=== PATIENT | female | born 1960 | race Caucasian/White ===

== ENCOUNTER 2024-08-29 07:33 | Inpatient (IN) | payer MEDICARE, SELFPAY ==
[2024-08-29] VITALS (18 sets, daily range): BP systolic 148–206; BP diastolic 58–99; PULSE 82–114; RESP 12–22; TEMP 36–36.9; O2SAT 95–100; BMI 25.7
--- NOTE | 2024-08-29 | ECG_ITS ---
Test Reason : high troponin Blood Pressure : */* mmHG Vent. Rate : 82 BPM Atrial Rate : 82 BPM P-R Int : 172 ms QRS Dur : 138 ms QT Int : 432 ms P-R-T Axes : 64 94 51 degrees QTcB Int : 504 ms Normal sinus rhythm with sinus arrhythmia Right bundle branch block Abnormal ECG When compared with ECG of 29-Aug-2024 08:05, No significant change was found Referred By: Alex Cervantes Electronically Signed By: Tung Tovar
--- NOTE | ~2024-08-29 | CT_ITS ---
CLINICAL HISTORY: abd pain and vomiting CT abdomen and pelvis without IV or oral contrast Comparison: None Findings: Lung bases show no active disease. No dependent layering pleural effusions. Moderate calcified coronary artery disease. Small sliding hiatal hernia. No stones are identified in the kidneys, ureters or bladder. There is no hydronephrosis or perinephric stranding/fluid. Evaluation of the liver, spleen, adrenal glands and pancreas demonstrates no lesions. It should be noted that isodense masses may be obscured in the absence of intravenous contrast. No radiopaque gallstones. Normal appendix. Increased stool burden. No pathologically enlarged lymph nodes . No ascites demonstrated. Normal distention of the urinary bladder. Post hysterectomy. No vertebral body compression fractures or spondylolisthesis. No bony destructive lesions. Impression: 1. No nephrolithiasis or urinary tract obstruction demonstrated. 2. No evidence of mechanical bowel obstruction. Equivocal gastroenteritis. Increased stool burden. Normal appendix. This document has been electronically signed by: Prem Underwood MD on 08/29/2024 10:30:23
[2024-08-29 07:49] LABS: Glucose, Whole Blood 507 mg/dL (60-115)
--- NOTE | 2024-08-29 07:52 | ED_ITS ---
HPI - Nausea/Vomiting/Diarrhea General Chief complaint: Nausea/Vomiting/Diarrhea Stated complaint: VOMITING Time Seen by Provider: 08/29/24 07:40 Source: patient and EMS Mode of arrival: EMS Limitations: no limitations History of Present Illness ED Provider: DR. Lowry HPI Narrative: a 64-year-old female came in by ambulance for evaluation of vomiting that is started since this morning, patient was traveling from [place] to [place] with RV, patient sustained sudden onset of vomiting and epigastric pain since this morning, no history of exposure to sick contacts, no exposure to bad food, no recent use of antibiotic, normal bowel movement yesterday, patient passing flatus, no history of intra-abdominal surgery. Patient was history of T2 DM recently started on Ozempic x4 weeks patient has been getting episode of nausea and vomiting while she was on Ozempic last injection was last week she is due for it today, and high blood pressure. +frequency urination, no dysuria, no hematuria. Patient is unable to take her oral medication presented with elevated blood pressure and elevated BS. Related Data Home Medications ?Medication ?Instructions ?Recorded ?Confirmed bupropion HCl 150 mg 24 hr tablet, 150 mg PO DAILY 08/18 extended release celecoxib 200 mg capsule 200 mg PO BID 08/29/24 ezetimibe 10 mg tablet 10 mg PO DAILY 08/29/24 fluoxetine 20 mg capsule 60 mg PO DAILY 08/29/24 fluoxetine 40 mg capsule 80 mg PO DAILY 08/29/24 guanfacine 3 mg tablet,extended 3 mg PO BEDTIME release 24 hr insulin glargine 100 38 unit subcut DAILY 5 unit-lixisenatide 33 mcg/mL subcutaneous pen (Soliqua 100/33) insulin glargine 100 unit/mL (3 21 unit subcut DAILY 0 08/29/24 mL) subcutaneous pen (Lantus Solostar U-100 Insulin) olmesartan 40 1 tab PO DAILY 08/29/24 mg-hydrochlorothiazide 12.5 mg tablet ondansetron 4 mg disintegrating 4 mg PO DAILY PRN naus ea/vomiting 08/29/24 08/29/24 tablet pregabalin 75 mg capsule 75 mg PO BID 08/29/24 semaglutide 1 mg/dose (4 mg/3 mL) 4 mg subcut QWEEK subcutaneous pen injector (Ozempic) simvastatin 40 mg tablet 40 mg PO BEDTIME 08/29/24 tizanidine 4 mg tablet 4 mg PO TID PRN muscle spasm s 08/29/24 08/29/24 tramadol 50 mg tablet 50 mg PO DAILY PRN Pain 08/18 zolpidem 5 mg tablet 5 mg PO BEDTIME PRN Insomnia 08/29/24 Allergies Allergy/AdvReac Type Severity Reaction Status Date / Time No Known Allergies Allergy Verified 08/29/24 07:43 Review of Systems 2 Review of Systems: All other systems are reviewed and are negative Constitutional: Reports as per HPI and Reports no additional constitutional complaints Eyes: Reports as per HPI and Reports no additional eye complaints Reports system reviewed and no additional complaints, except as documented Cardiovascular: Reports as per HPI and Reports no additional cardiovascular complaints Respiratory: Reports as per HPI and Reports no additional respiratory complaints Gastrointestinal: Reports as per HPI and Reports no additional gastrointestinal complaints Genitourinary: Reports no additional female genitourinary complaints Musculoskeletal: Reports no additional musculoskeletal complaints Skin/Breast: Reports system reviewed and no additional complaints, except as docu Psychiatric: Reports no additional psychiatric complaints Endocrine: Reports no additional endocrine complaints Hematologic/Lymphatic: Reports no additional hematologic/lymphatic complaints Allergic/Immunologic: Reports no additional allergic/immunologic complaints Reports system reviewed and no additional complaints, except as documented and Reports Abnormal speech present [facility] Social History Social History Smoked in Last 30 Days: No Use of substances other than those prescribed or required for medical reasons: No Advance Directives: Yes Advance Directives Information Provided: Yes Advance Directives on File: No Physical Exam 2 Vital Signs: Vital Signs: Last Vital Signs Temp 96.8 F 08/29/24 07:40 Pulse 82 08/29/24 10:00 Resp 12 08/29/24 10:00 BP 187/78 H 08/29/24 10:00 Pulse Ox 100 08/29/24 10:00 O2 Del Method Room Air 08/29/24 10:00 BMI result Body Mass Index 25.7 Vital signs have been reviewed and appear to be correct. Blood pressure elevated. Heart rate normal. Respiratory rate normal. Temperature normal. Oxygen saturation normal. Appearance: Alert. Oriented X3. No acute distress. Head: Normal external exam. Normocephalic. Atraumatic. No [place]o signs noted. No raccoon eyes noted Eyes: PERRLA. EOMI. Conjunctiva and sclera normal. Eyelids normal. ENT: TM's Normal. Pharynx normal. Uvula midline. Moist mucous membranes. No trismus noted. No drooling noted. No muffled voice noted. Neck: Normal inspection. Neck supple. FROM. No adenopathy. Thyroid Normal. No meningeal signs. No neck mass noted. CVS: Normal heart rate and rhythm. Heart sound normal. No murmurs noted. Pulses normal throughout. Respiratory: No respiratory distress. Painless inspiration. Breath sounds normal. No wheezes/rales/rhonchi noted. Chest nontender. No accessory muscle usage noted or decreased air movement noted. Abdomen: Soft and nontender. Bowel sounds normal in all 4 quadrants. No distention noted. No organomegaly noted. No visible injury noted. Back: No CVA tenderness. Full range of motion noted. Skin: Skin warm and dry. Normal skin color. Normal skin turgor. No rashes/lesions/lacerations noted. Extremities: No lower extremity edema. Extremities exhibit normal range of motion. Extremities nontender. Neuro: Oriented X 3. Cranial nerve exam: II-XII are grossly intact No motor deficit. No sensory deficit. Reflexes normal. Course Reevaluation(s) Reevaluation #1: Sepsis and infection is suspected now patient in DKA, +UTI. Will check blood culture, lactic acid, IV fluids, IV ceftriaxone. Time: 10:07 Medications Administered Generic Name Dose Route Start Last Admin Trade Name Freq PRN Reason Stop Dose Admin Insulin Human Regular 100 unit in 100 mls @ 0 mls/hr 08/29/24 09:45 08/29/24 10:05 Myxredlin IVCONT 8 unit/hr .Q0M RAQUEL 8 mls/hr Protocol Administration Per Protocol Sodium Chloride 2,041.17 mls @ 2,041.17 mls/hr 08/29/24 09:55 08/29/24 10:07 Ns 30 ml/kg infuse over 1 hr (2041.17 ml) 08/29/24 10:54 2,041.17 mls/hr IV Administration .Q1H STA Discontinued Medications Generic Name Dose Route Start Last Admin Trade Name Freq PRN Reason Stop Dose Admin Al Hydroxide/Mg Hydroxide 30 ml 08/29/24 07:40 08/29/24 08:03 Magnesium Hydrox/Alum Hydrox 30 Ml Oral.Susp PO 08/29/24 07:41 30 ml ONCE ONE Administration Ceftriaxone Sodium 1 gm 08/29/24 09:51 08/29/24 10:31 Ceftriaxone Sodium 1 Gm Vial IVPUSH 08/29/24 09:52 1 gm ONCE ONE Administration Droperidol 1.25 mg 08/29/24 09:16 08/29/24 09:31 Droperidol 5 Mg/2 Ml Vial IVPUSH 08/29/24 09:17 1.25 mg ONCE ONE Administration Famotidine 20 mg 08/29/24 07:40 08/29/24 08:03 Famotidine/Pf 20 Mg/2 Ml Vial IVPUSH 08/29/24 07:41 20 mg ONCE ONE Administration Sodium Chloride 1,000 mls @ 999 mls/hr 08/29/24 07:40 08/29/24 09:30 Ns IV 08/29/24 08:40 Infused .Q1H1M ONE Infusion Insulin Human Regular 5 unit 08/29/24 07:50 08/29/24 08:03 Insulin Regular, Human 100 Unit/Ml 10 Ml Vial IVPUSH 08/29/24 07:51 5 unit ONCE ONE Administration Ondansetron HCl 4 mg 08/29/24 07:40 08/29/24 08:03 Ondansetron Hcl 4 Mg/2 Ml Vial IVPUSH 08/29/24 07:41 4 mg ONCE ONE Administration Medical Decision Making Differential Diagnosis Differential Diagnoses: The differential diagnosis associated with the presentation includes ( essential hypertension, hypertensive emergency, gastritis, colitis, diverticulitis, UTI, pyelonephritis, electrolyte derangement, severe anemia.) Admission/Observation Consideration of admission/observation: Escalation of care including admission/observation considered Consult Healthcare Provider Management of the patient was discussed with: Single Fold Machine Operator ( Dr. Church) Lab Data MDM Lab Attestation statement: I reviewed the patient's lab results. 08/29/24 07:54 08/29/24 07:54 Labs: Lab Results 08/29/24 08/29/24 08/29/24 Range/Units 07:46 07:54 08:04 WBC 19.5 H (4.8-10.8) X10*3/uL RBC 3.86 L (4.20-5.50) X10*6/uL Hgb 11.7 L (12.0-16.0) g/dl Hct 32.6 L (37.0-47.0) % MCV 84.5 (80.0-98.0) fL MCH 30.3 (27.0-33.0) pg MCHC 35.9 H (31.0-35.0) g/dl RDW 12.3 (11.0-16.0) % Plt Count 298 (160-400) X10*3/uL MPV 10.6 (9.4-12.3) fL Immature Gran % (Auto) 1.0 H (0.0-0.4) % Neut % (Auto) 85.1 H (45-73) % Lymph % (Auto) 6.2 L (20-40) % [place] % (Auto) 7.3 (2-11) % Eos % (Auto) 0.1 (0-4) % Baso % (Auto) 0.3 (0-2) % Lymph # (Auto) 1.2 (1.2-4.9) X10*3/uL [place] # (Auto) 1.4 H (0.1-1.2) X10*3/uL Eos # (Auto) 0.0 (0.0-0.4) X10*3/uL Baso # (Auto) 0.1 (0.0-0.2) X10*3/uL Abs Immat Gran (auto) 0.20 H (0.00-0.03) X10*3/uL Absolute Neuts (auto) 16.6 H (2.0-8.3) x10*3/uL Absolute Nucleated RBC 0.000 (0.0-0.012) X10*3/uL Nucleated RBC % (auto) 0.0 (0.0-0.2) /100WBC Hold Purple Top SEE NOTE VBG pH 7.36 (7.32-7.43) VBG pCO2 20 mmHg VBG pO2 66 mmHg VBG HCO3 11 L (22-26) mmol/L VBG O2 Saturation 90.0 % VBG Base Excess -11.1 mmol/L Sodium 132 L (135-145) mmol/L Potassium 4.9 (3.3-5.1) mmol/L Chloride 96 (96-108) mmol/L Carbon Dioxide 12 L (22-29) mmol/L Anion Gap 29 H (12-20) BUN 29 H (9-16) mg/dL Creatinine 1.15 (0.5-1.4) mg/dL Estim Creat Clear Calc 47.4 Estimated GFR 48 POC Glucose 507 H* (60-115) mg/dL Random Glucose 534 H* (60-115) mg/dL Lactic Acid (0.5-2.0) mmol/L Calcium 9.6 (8.4-10.2) mg/dL Total Bilirubin 1.0 (0.0-1.0) mg/dL Direct Bilirubin 0.4 (0.0-0.5) mg/dL AST 30 (5-31) U/L ALT 21 (0-31) U/L Alkaline Phosphatase 118 H (39-117) U/L Troponin I High Sens 3.0 (<3.5-17.0) ng/L Total Protein 7.7 (6.5-8.0) g/dL Albumin 4.4 (3.5-5.0) g/dL Lipase 50 (8-78) U/L Beta-Hydroxybutyrate 7.21 H (0.02-0.27) mmol/L Urine Color Urine Appearance Urine pH (5.0-9.0) Ur Specific [place] (1.005-1.025) Urine Protein (Neg-Trace) mg/dL Urine Glucose (UA) (Negative) mg/dL Urine Ketones (Negative) mg/dL Urine Blood (Negative) Urine Nitrite (Negative) Ur Leukocyte Esterase (Negative) Urine RBC (0-2) /HPF Urine WBC (0-5) /HPF Ur Squamous Epith Cells (0-2) /HPF Urine Bacteria (None Seen) Hyaline Casts (0-2) /LPF Urine Yeast 08/29/24 08/29/24 08/29/24 Range/Units 08:33 10:16 10:26 WBC (4.8-10.8) X10*3/uL RBC (4.20-5.50) X10*6/uL Hgb (12.0-16.0) g/dl Hct (37.0-47.0) % MCV (80.0-98.0) fL MCH (27.0-33.0) pg MCHC (31.0-35.0) g/dl RDW (11.0-16.0) % Plt Count (160-400) X10*3/uL MPV (9.4-12.3) fL Immature Gran % (Auto) (0.0-0.4) % Neut % (Auto) (45-73) % Lymph % (Auto) (20-40) % [place] % (Auto) (2-11) % Eos % (Auto) (0-4) % Baso % (Auto) (0-2) % Lymph # (Auto) (1.2-4.9) X10*3/uL [place] # (Auto) (0.1-1.2) X10*3/uL Eos # (Auto) (0.0-0.4) X10*3/uL Baso # (Auto) (0.0-0.2) X10*3/uL Abs Immat Gran (auto) (0.00-0.03) X10*3/uL Absolute Neuts (auto) (2.0-8.3) x10*3/uL Absolute Nucleated RBC (0.0-0.012) X10*3/uL Nucleated RBC % (auto) (0.0-0.2) /100WBC Hold Purple Top VBG pH (7.32-7.43) VBG pCO2 mmHg VBG pO2 mmHg VBG HCO3 (22-26) mmol/L VBG O2 Saturation % VBG Base Excess mmol/L Sodium (135-145) mmol/L Potassium (3.3-5.1) mmol/L Chloride (96-108) mmol/L Carbon Dioxide (22-29) mmol/L Anion Gap (12-20) BUN (9-16) mg/dL Creatinine (0.5-1.4) mg/dL Estim Creat Clear Calc Estimated GFR POC Glucose 400 H* (60-115) mg/dL Random Glucose (60-115) mg/dL Lactic Acid 1.5 (0.5-2.0) mmol/L Calcium (8.4-10.2) mg/dL Total Bilirubin (0.0-1.0) mg/dL Direct Bilirubin (0.0-0.5) mg/dL AST (5-31) U/L ALT (0-31) U/L Alkaline Phosphatase (39-117) U/L Troponin I High Sens (<3.5-17.0) ng/L Total Protein (6.5-8.0) g/dL Albumin (3.5-5.0) g/dL Lipase (8-78) U/L Beta-Hydroxybutyrate (0.02-0.27) mmol/L Urine Color Yellow Urine Appearance Clear Urine pH 5.5 (5.0-9.0) Ur Specific [place] 1.025 (1.005-1.025) Urine Protein 30 (1+) H (Neg-Trace) mg/dL Urine Glucose (UA) >=1000 H (Negative) mg/dL Urine Ketones >=160 (Negative) mg/dL Urine Blood Moderate (2+) H (Negative) Urine Nitrite Negative (Negative) Ur Leukocyte Esterase Moderate (2+) H (Negative) Urine RBC 3-5 H (0-2) /HPF Urine WBC 11-20 H (0-5) /HPF Ur Squamous Epith Cells 0-2 (0-2) /HPF Urine Bacteria Trace (None Seen) Hyaline Casts 0-2 (0-2) /LPF Urine Yeast Present Independent Interpretation I performed an independent interpretation of an: CT Scan ( Abdomen pelvis:1. No nephrolithiasis or urinary tract obstruction demonstrated. 2. No evidence of mechanical bowel obstruction. Equivocal gastroenteritis. Increased stool burden. Normal appendix.) Radiology Impression Discussion of test interpretation with radiology: I have reviewed the radiologist's reading. Critical Care Time Critical Care Time Critical Care Time: Yes Total Critical Care Time: 60 Attestation: The patient was critically ill with a high probability of imminent or life- threatening deterioration. I spent greater than 30 minutes of discontinuous time evaluating the patient, delivering critical care at the bedside, discussing evaluating data with consultants. Critical care time does not include time spent performing separately billable procedures or teaching. Time spent performing critical care was 60 minutes. Discharge Plan Discharge Clinical Impression: DKA (diabetic ketoacidosis), Sepsis, UTI (urinary tract infection) Patient Disposition: Admitted As Inpatient Print Language: Maori
--- NOTE | 2024-08-29 07:53 | ECG_ITS ---
Test Reason : ABD PAIN Blood Pressure : */* mmHG Vent. Rate : 88 BPM Atrial Rate : 88 BPM P-R Int : 180 ms QRS Dur : 150 ms QT Int : 438 ms P-R-T Axes : 55 86 29 degrees QTcB Int : 529 ms Sinus rhythm with marked sinus arrhythmia Right bundle branch block Abnormal ECG No previous ECGs available Referred By: Annie Lowry Electronically Signed By: HELIO ZUNIGA MD
[2024-08-29 08:02] LABS: MANUAL DIFF FLAG NO
[2024-08-29] MEDS: Magnesium Hydrox/Alum Hydrox 30 ML ORAL.SUSP PO (08:03)
[2024-08-29 08:06] LABS: Hematocrit 32.6 % (37.0-47.0); Hemoglobin 11.7 g/dl (12.0-16.0); Imm Gran Abs Auto 0.20 X10*3/uL (0.00-0.03); Imm Gran Pct Auto 1.0 % (0.0-0.4); Lymphocytes Absolute Auto 1.2 X10*3/uL (1.2-4.9); Mean Corpuscular HGB Conc 35.9 g/dl (31.0-35.0); Mean Corpuscular Hemoglobin 30.3 pg (27.0-33.0); Mean Corpuscular Volume 84.5 fL (80.0-98.0); NRBC Abs Auto 0.000 X10*3/uL (0.0-0.012); NRBC Pct Auto 0.0 /100WBC (0.0-0.2); Platelet Count 298 X10*3/uL (160-400); Red Blood Count 3.86 X10*6/uL (4.20-5.50); White Blood Count 19.5 X10*3/uL (4.8-10.8)
[2024-08-29 08:09] LABS: VBG HCO3 11 mmol/L (22-26); VBG O2 % Saturation 90.0 %
[2024-08-29 08:10] LABS: Venous Blood Gas Refer to POC result
--- NOTE | 2024-08-29 08:10 | PC.NURSE ---
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 Patient recently started on ozempic which patient states made her sick. Patient lethargic but arrousable - poor historian and noted to have difficulty answering simple questions. Placed on monitoring manager and NSR noted. Patient noted to have an elevated blood sugar and insulin given as ordered. Lungs clear bilat. Respirations even and non-labored. Abdomen soft with positive bowel sounds. c/o epigastric pain and noted to be dry heaving. Positive pedal pulses with no edema.
[2024-08-29 08:38] LABS: Troponin-I High Sensitivity 3.0 ng/L (<3.5-17.0)
[2024-08-29 08:40] LABS: Appearance Urine Clear; Glucose Urine UA >=1000 mg/dL (Negative); PH 5.5 (5.0-9.0); Specific Gravity - Urine 1.025 (1.005-1.025); UMIC TRIGGER UACC YES
[2024-08-29 08:41] LABS: Alanine Aminotransferase 21 U/L (0-31); Albumin Level 4.4 g/dL (3.5-5.0); Alkaline Phosphatase 118 U/L (39-117); Anion Gap 29 (12-20); Aspartate Amino Transferase 30 U/L (5-31); Blood Urea Nitrogen 29 mg/dL (9-16); Calcium 9.6 mg/dL (8.4-10.2); Carbon Dioxide 12 mmol/L (22-29); Chloride 96 mmol/L (96-108); Creatinine Clr Calc Pharmacy 47.4; Estimated Glomerular Filt Rate 48; Lipase 50 U/L (8-78); Potassium 4.9 mmol/L (3.3-5.1); Sodium 132 mmol/L (135-145); Total Protein 7.7 g/dL (6.5-8.0)
[2024-08-29 08:58] LABS: UACC Culture Trigger YES
[2024-08-29] MEDS: Insulin Regular/NS 100 UNIT/100 ML PLAST..BAG 8 UNIT IVCONT (10:05)
[2024-08-29] MEDS: 0.9 % Sodium Chloride 2,041.17 ML 2041.17 ML IV (10:07)
[2024-08-29 10:36] LABS: Glucose, Whole Blood 400 mg/dL (60-115)
--- NOTE | 2024-08-29 11:04 | PM.CCHP ---
History of Present Illness Date of Service: 08/29/24 Attending physician on admission: Vega Church Chief Complaint: Nause clear-cut DKA a vomiting 64-year-old type 2 diabetic on a trip to [place] driving home to [place] started to become weak and more lethargic yesterday and noted very foul-smelling urine but she had no cough no shortness a breath no chest discomfort she had no tick exposure she had no swimming in either the ocean or in a bello no cuts no bruises just the increased urinary frequency urgency and dysuria the only medicine she remembers is the Ozempic Review of Systems Review of Systems: Ten point review of systems otherwise negative Yes all other systems are reviewed and are negative [facility] Social History Social History Smoked in Last 30 Days: No Use of substances other than those prescribed or required for medical reasons: No Advance Directives: Yes Advance Directives Information Provided: Yes Advance Directives on File: No Meds Allergies Allergy/AdvReac Type Severity Reaction Status Date / Time No Known Allergies Allergy Verified 08/29/24 07:43 Active Medications: Current Medications Dextrose (Dextrose 50 % 25 Gm/50 Ml Syringe) 25 gm IVPUSH Q30M PRN PRN Reason: BG < 70 Insulin Human Regular (Myxredlin) 100 unit in 100 mls @ 0 mls/hr IVCONT .[facility]M [facility]; Protocol Last Admin: 08/29/24 10:05 Dose: 8 unit/hr, 8 mls/hr Potassium Chloride/Dextrose/Sod Cl (Kcl 20 Meq In 5% Dex/0.45% Sod) 20 meq in 1,000 mls @ 100 mls/hr IVCONT .Q10H [facility] Home Medications ?Medication ?Instructions ?Recorded ?Confirmed ?Last Taken ?Type bupropion HCl 150 mg 24 hr tablet, 150 mg PO DAILY 08/29/24 Unknown History extended release celecoxib 200 mg capsule 200 mg PO BID 08/29/24 Unknown History ezetimibe 10 mg tablet 10 mg PO DAILY 08/29/24 Unknown History fluoxetine 20 mg capsule 60 mg PO DAILY 08/29/24 Unknown History fluoxetine 40 mg capsule 80 mg PO DAILY 08/29/24 Unknown History guanfacine 3 mg tablet,extended 3 mg PO BEDTIME 08/29/24 Unknown History release 24 hr insulin glargine 100 38 unit subcut DAILY 08/29/24 Unknown History unit-lixisenatide 33 mcg/mL subcutaneous pen (Soliqua 100/33) insulin glargine 100 unit/mL (3 21 unit subcut DAILY 08/29/24 Unknown History mL) subcutaneous pen (Lantus Solostar U-100 Insulin) olmesartan 40 1 tab PO DAILY 08/29/24 Unknown History mg-hydrochlorothiazide 12.5 mg tablet ondansetron 4 mg disintegrating 4 mg PO DAILY PRN nausea/vomiting 08/29/24 08/29/24 Unknown History tablet pregabalin 75 mg capsule 75 mg PO BID 08/29/24 Unknown History semaglutide 1 mg/dose (4 mg/3 mL) 4 mg subcut QWEEK 08/29/24 Unknown History subcutaneous pen injector (Ozempic) simvastatin 40 mg tablet 40 mg PO BEDTIME 08/29/24 Unknown History tizanidine 4 mg tablet 4 mg PO TID PRN muscle spasms 08/29/24 08/29/24 Unknown History tramadol 50 mg tablet 50 mg PO DAILY PRN Pain 08/29/24 Unknown History zolpidem 5 mg tablet 5 mg PO BEDTIME PRN Insomnia 08/29/24 Unknown History Physical Exam Vital Signs: Vital Signs: Last Vital Signs Temp 96.8 F 08/29/24 07:40 Pulse 82 08/29/24 10:00 Resp 12 08/29/24 10:00 BP 187/78 H 08/29/24 10:00 Pulse Ox 100 08/29/24 10:00 O2 Del Method Room Air 08/29/24 10:00 BMI result Body Mass Index 25.7 Eyes are closed no she has she is looking adeno somewhat distressed very nauseous she has reached up a little bit of upper GI volume and she has already received a few L of fluid from the emergency room at this point and 5 units of IV insulin Skin is normal there are no lesions no tics no bites no cellulitis Cognitive function is okay just lethargic nonfocal exam Bedside echo with normal LV normal RV size structure and function no primary valve or pericardial disease and the inferior vena cava is fairly collapsed even after this fluid is given so clearly intravascularly depleted Abdomen benign no tenderness no organomegaly and the lipase is normal Results Labs 08/29/24 07:54 08/29/24 07:54 Labs: Laboratory Results - last 24 hr 08/29/24 08/29/24 08/29/24 07:46 07:54 08:04 MCV 84.5 MCH 30.3 MCHC 35.9 H RDW 12.3 Plt Count 298 MPV 10.6 Immature Gran % (Auto) 1.0 H Neut % (Auto) 85.1 H Lymph % (Auto) 6.2 L [place] % (Auto) 7.3 Eos % (Auto) 0.1 Baso % (Auto) 0.3 Lymph # (Auto) 1.2 [place] # (Auto) 1.4 H Eos # (Auto) 0.0 Baso # (Auto) 0.1 Abs Immat Gran (auto) 0.20 H Absolute Neuts (auto) 16.6 H Absolute Nucleated RBC 0.000 Nucleated RBC % (auto) 0.0 Hold Purple Top SEE NOTE VBG pH 7.36 VBG pCO2 20 VBG pO2 66 VBG HCO3 11 L VBG O2 Saturation 90.0 VBG Base Excess -11.1 Anion Gap 29 H Estim Creat Clear Calc 47.4 Estimated GFR 48 POC Glucose 507 H* Random Glucose 534 H* Lactic Acid Calcium 9.6 Total Bilirubin 1.0 Direct Bilirubin 0.4 AST 30 ALT 21 Alkaline Phosphatase 118 H Troponin I High Sens 3.0 Total Protein 7.7 Albumin 4.4 Lipase 50 Beta-Hydroxybutyrate 7.21 H Urine Color Urine Appearance Urine pH Ur Specific [place] Urine Protein Urine Glucose (UA) Urine Ketones Urine Blood Urine Nitrite Ur Leukocyte Esterase Urine RBC Urine WBC Ur Squamous Epith Cells Urine Bacteria Hyaline Casts Urine Yeast 08/29/24 08/29/24 08/29/24 08:33 10:16 10:26 MCV MCH MCHC RDW Plt Count MPV Immature Gran % (Auto) Neut % (Auto) Lymph % (Auto) [place] % (Auto) Eos % (Auto) Baso % (Auto) Lymph # (Auto) [place] # (Auto) Eos # (Auto) Baso # (Auto) Abs Immat Gran (auto) Absolute Neuts (auto) Absolute Nucleated RBC Nucleated RBC % (auto) Hold Purple Top VBG pH VBG pCO2 VBG pO2 VBG HCO3 VBG O2 Saturation VBG Base Excess Anion Gap Estim Creat Clear Calc Estimated GFR POC Glucose 400 H* Random Glucose Lactic Acid 1.5 Calcium Total Bilirubin Direct Bilirubin AST ALT Alkaline Phosphatase Troponin I High Sens Total Protein Albumin Lipase Beta-Hydroxybutyrate Urine Color Yellow Urine Appearance Clear Urine pH 5.5 Ur Specific [place] 1.025 Urine Protein 30 (1+) H Urine Glucose (UA) >=1000 H Urine Ketones >=160 Urine Blood Moderate (2+) H Urine Nitrite Negative Ur Leukocyte Esterase Moderate (2+) H Urine RBC 3-5 H Urine WBC 11-20 H Ur Squamous Epith Cells 0-2 Urine Bacteria Trace Hyaline Casts 0-2 Urine Yeast Present Assessment and Plan (1) DKA (diabetic ketoacidosis): Status: Acute (2) UTI (urinary tract infection): Status: Acute Plan Thus far I do not believe that she is septic she might have a urinary tract infection but either the UTI or the GLP 1 inhibitor precipitated this diabetic ketoacidosis and I may not even continue with an insulin drip I am just going to continue with IV fluids and possibly send a procalcitonin but at this point there is no lactic acid component this is purely ketogenic Total time managing care of this patient today: 60 minutes.
[2024-08-29 11:34] LABS: Glucose, Whole Blood 280 mg/dL (60-115)
--- NOTE | 2024-08-29 11:38 | PC.NURSE ---
Report given to Judith SALAS
--- NOTE | 2024-08-29 11:49 | PHA.MEDREC ---
Pharmacy Consult ? Medication Reconciliation Pharmacy has completed the medication reconciliation, pt's compiled list of pt's medications. Spoke to pt and him about those left off the list, pt stated she doesn't not use insulin, gets ozempic on sundays.
[2024-08-29 12:18] LABS: Glucose, Whole Blood 264 mg/dL (60-115)
[2024-08-29] MEDS: KCl 20 mEq in 5% Dex/0.45% Sod 20 MEQ/1,000 ML IV.SOLN 100 MEQ IVCONT (12:24)
[2024-08-29 12:59] LABS: Procalcitonin 0.96 ng/mL
[2024-08-29 13:33] LABS: Glucose, Whole Blood 244 mg/dL (60-115)
[2024-08-29 14:35] LABS: Glucose, Whole Blood 216 mg/dL (60-115)
--- NOTE | 2024-08-29 14:46 | PC.NURSE ---
?The patient arrived to ICU?approximately at 1215 from the ED for management of DKA. Neuro/Respiratory: Alert and oriented but fatigued. On RA, clear lung sounds.? Cardiac:? Sinus Rhythm on tele, Systolic BP > 170. Dr. Church made aware, no intervention at this time. GI/: LBM 7/3, +bowel sounds, NPO, Voiding in the bedside commode,? Skin: Intact Endocrine: on Insulin gtt per MAR, POC Q 1 Hr Lines: Peripheral IV x2.
[2024-08-29 15:12] LABS: Blood Urea Nitrogen 20 mg/dL (9-16); Calcium 8.7 mg/dL (8.4-10.2); Creatinine Clr Calc Pharmacy 62.0; Estimated Glomerular Filt Rate > 60
[2024-08-29 15:26] LABS: Anion Gap 22 (12-20); Carbon Dioxide 11 mmol/L (22-29); Chloride 108 mmol/L (96-108); Potassium 3.9 mmol/L (3.3-5.1); Sodium 137 mmol/L (135-145)
[2024-08-29 15:28] LABS: VBG HCO3 14 mmol/L (22-26); VBG O2 % Saturation 100.0 %
[2024-08-29 15:29] LABS: Venous Blood Gas Refer to POC result
[2024-08-29] MEDS: Lactated Ringers 1,000 ML 125 ML IVCONT (15:37)
[2024-08-29] MEDS: Potassium Phosphate/NS 15 MMOL/250 ML PLAST..BAG 62.5 MMOL IV (15:38)
[2024-08-29 15:44] LABS: Glucose, Whole Blood 213 mg/dL (60-115)
[2024-08-29 16:32] LABS: Glucose, Whole Blood 193 mg/dL (60-115)
[2024-08-29 17:41] LABS: Glucose, Whole Blood 155 mg/dL (60-115)
[2024-08-29 18:40] LABS: Glucose, Whole Blood 159 mg/dL (60-115)
[2024-08-29 19:26] LABS: VBG HCO3 15 mmol/L (22-26); VBG O2 % Saturation 99.0 %
[2024-08-29 19:26] LABS: Hematocrit 33.9 % (37.0-47.0); Hemoglobin 11.8 g/dl (12.0-16.0); Imm Gran Abs Auto 0.29 X10*3/uL (0.00-0.03); Imm Gran Pct Auto 1.4 % (0.0-0.4); Lymphocytes Absolute Auto 0.9 X10*3/uL (1.2-4.9); MANUAL DIFF FLAG SCAN; Mean Corpuscular HGB Conc 34.8 g/dl (31.0-35.0); Mean Corpuscular Hemoglobin 30.2 pg (27.0-33.0); Mean Corpuscular Volume 86.7 fL (80.0-98.0); NRBC Abs Auto 0.000 X10*3/uL (0.0-0.012); NRBC Pct Auto 0.0 /100WBC (0.0-0.2); Platelet Count 289 X10*3/uL (160-400); Red Blood Count 3.91 X10*6/uL (4.20-5.50); SCAN SMEAR FLAG 1; White Blood Count 21.2 X10*3/uL (4.8-10.8)
[2024-08-29 19:27] LABS: Venous Blood Gas Refer to POC result
[2024-08-29 19:34] LABS: Glucose, Whole Blood 162 mg/dL (60-115)
[2024-08-29 19:37] LABS: Anion Gap 18 (12-20); Blood Urea Nitrogen 15 mg/dL (9-16); Calcium 8.4 mg/dL (8.4-10.2); Carbon Dioxide 17 mmol/L (22-29); Chloride 106 mmol/L (96-108); Creatinine Clr Calc Pharmacy 79.1; Estimated Glomerular Filt Rate > 60; Potassium 3.8 mmol/L (3.3-5.1); Sodium 137 mmol/L (135-145)
[2024-08-29 19:51] LABS: Troponin-I High Sensitivity 272.6 ng/L (<3.5-17.0)
[2024-08-29 20:27] LABS: B Type Natriuretic Peptide 541 pg/mL (<100)
[2024-08-29 20:39] LABS: Glucose, Whole Blood 169 mg/dL (60-115)
[2024-08-29 21:44] LABS: Glucose, Whole Blood 180 mg/dL (60-115)
[2024-08-29 22:08] LABS: VBG HCO3 17 mmol/L (22-26); VBG O2 % Saturation 99.0 %
[2024-08-29 22:08] LABS: Venous Blood Gas Refer to POC result
[2024-08-29] MEDS: Dextrose 5 % and Lactated Ring 1,000 ML 50 ML IVCONT (22:11)
[2024-08-29 22:22] LABS: Troponin-I High Sensitivity 453.7 ng/L (<3.5-17.0)
[2024-08-29 22:30] LABS: INTERNATIONAL NORM RATIO 1.0 (0.9-1.1); Prothrombin Time 11.7 SEC (10.9-12.4)
[2024-08-29 22:33] LABS: PTT Heparin Drip 22.2 SEC (53-77.9)
--- NOTE | 2024-08-29 22:33 | PM.EVENT ---
Event Note Date of Service: 08/29/24 Event Note: Patient troponin rising, inital trop at 0800 neg. Tonight trops elvated to 272.6 and follow up 453.7. Patient denies chest pain. EKG w/ no ST elevations. Will initiate heparin drip/ ASA. Formal echo and cardiology consult in the morning Time Spent With Patient Time: Total time managing care of this patient today ____ minutes.
[2024-08-29 23:02] LABS: Glucose, Whole Blood 176 mg/dL (60-115)
[2024-08-29] MEDS: Heparin Sodium,Porcine/1/2NS 25,000 UNIT/250 ML IV.SOLN 9.53 UNIT IVCONT (23:07)
[2024-08-29 23:36] LABS: Glucose, Whole Blood 202 mg/dL (60-115)
[2024-08-30] VITALS (27 sets, daily range): BP systolic 115–173; BP diastolic 58–88; PULSE 94–112; RESP 16–38; TEMP 36.1–36.8; O2SAT 97–99; BMI 25.0
--- NOTE | 2024-08-30 | ECG_ITS ---
Test Reason : elevated troponin Blood Pressure : */* mmHG Vent. Rate : 105 BPM Atrial Rate : 105 BPM P-R Int : 150 ms QRS Dur : 138 ms QT Int : 416 ms P-R-T Axes : 63 83 25 degrees QTcB Int : 549 ms Sinus tachycardia Right bundle branch block Abnormal ECG When compared with ECG of 29-Aug-2024 19:58, No significant change was found Referred By: Alex Cervantes Electronically Signed By: Tung Tovar
[2024-08-30 00:49] LABS: Glucose, Whole Blood 212 mg/dL (60-115)
[2024-08-30 01:47] LABS: Glucose, Whole Blood 205 mg/dL (60-115)
[2024-08-30 02:45] LABS: Glucose, Whole Blood 186 mg/dL (60-115)
[2024-08-30 03:52] LABS: Glucose, Whole Blood 180 mg/dL (60-115)
[2024-08-30 04:48] LABS: Glucose, Whole Blood 196 mg/dL (60-115)
[2024-08-30 04:52] LABS: VBG HCO3 18 mmol/L (22-26); VBG O2 % Saturation 92.0 %
[2024-08-30 05:47] LABS: Glucose, Whole Blood 181 mg/dL (60-115)
[2024-08-30 05:57] LABS: INTERNATIONAL NORM RATIO 1.0 (0.9-1.1); Prothrombin Time 11.8 SEC (10.9-12.4)
[2024-08-30 05:59] LABS: Hematocrit 34.3 % (37.0-47.0); Hemoglobin 12.2 g/dl (12.0-16.0); Imm Gran Abs Auto 0.22 X10*3/uL (0.00-0.03); Imm Gran Pct Auto 1.0 % (0.0-0.4); Lymphocytes Absolute Auto 1.2 X10*3/uL (1.2-4.9); MANUAL DIFF FLAG SCAN; Mean Corpuscular HGB Conc 35.6 g/dl (31.0-35.0); Mean Corpuscular Hemoglobin 30.1 pg (27.0-33.0); Mean Corpuscular Volume 84.7 fL (80.0-98.0); NRBC Abs Auto 0.000 X10*3/uL (0.0-0.012); NRBC Pct Auto 0.0 /100WBC (0.0-0.2); Platelet Count 362 X10*3/uL (160-400); Red Blood Count 4.05 X10*6/uL (4.20-5.50); SCAN SMEAR FLAG 1; White Blood Count 21.9 X10*3/uL (4.8-10.8)
[2024-08-30 06:16] LABS: Alanine Aminotransferase 15 U/L (0-31); Albumin Level 3.8 g/dL (3.5-5.0); Alkaline Phosphatase 100 U/L (39-117); Anion Gap 16 (12-20); Aspartate Amino Transferase 20 U/L (5-31); Blood Urea Nitrogen 15 mg/dL (9-16); Calcium 8.7 mg/dL (8.4-10.2); Carbon Dioxide 18 mmol/L (22-29); Chloride 104 mmol/L (96-108); Creatinine Clr Calc Pharmacy 81.4; Estimated Glomerular Filt Rate > 60; Potassium 3.3 mmol/L (3.3-5.1); Sodium 135 mmol/L (135-145); Total Protein 6.9 g/dL (6.5-8.0)
[2024-08-30 06:19] LABS: Alanine Aminotransferase 13 U/L (0-31); Albumin Level 3.9 g/dL (3.5-5.0); Alkaline Phosphatase 96 U/L (39-117); Anion Gap 18 (12-20); Aspartate Amino Transferase 21 U/L (5-31); Blood Urea Nitrogen 15 mg/dL (9-16); Calcium 8.8 mg/dL (8.4-10.2); Carbon Dioxide 18 mmol/L (22-29); Chloride 103 mmol/L (96-108); Creatinine Clr Calc Pharmacy 76.8; Estimated Glomerular Filt Rate > 60; Magnesium 1.7 mg/dL (1.6-2.6); Potassium 3.3 mmol/L (3.3-5.1); Sodium 136 mmol/L (135-145); Total Protein 7.0 g/dL (6.5-8.0)
[2024-08-30 06:24] LABS: PTT Heparin Drip 26.6 SEC (53-77.9)
[2024-08-30 06:36] LABS: Troponin-I High Sensitivity 529.7 ng/L (<3.5-17.0)
[2024-08-30 06:43] LABS: Glucose, Whole Blood 183 mg/dL (60-115)
[2024-08-30] MEDS: Insulin Regular/NS 100 UNIT/100 ML PLAST..BAG IVCONT (06:44)
--- NOTE | 2024-08-30 07:00 | CA_ITS ---
Transthoracic Echocardiogram Patient (Last, First, Middle): Leatha Lira, Gender: Female Date of : 1960 Age: 64 Procedure Date: 08/30/2024 Procedure Type: Transthoracic Echocardiogram Location: ICU Height: 165.1 cm Weight: 65.77 kg BSA: 1.73 m2 Heart Rate: 102 bpm BP: 144 / 63 mmHg [employer] Instructor: SB Referring MD: Alex Cervantes NP Symptoms: Elevated trop Study Quality: Fair ECG Rhythm: Tachycardia Conclusions: - Normal left ventricular cavity size. The left ventricular systolic function is hyperdynamic. The visually estimated ejection fraction is >70%. - [id number] left ventricular hypertrophy. - Left ventricular outflow tract gradient at rest 49 mm Hg, post Valsalva 66 mm Hg. No mitral regurgitation noted. - Normal right ventricular cavity size and systolic function. Findings Procedure Information Contrast agent, definity, is being given per protocol without apparent complications. Left Ventricle Normal left ventricular cavity size. The left ventricular systolic function is hyperdynamic. The visually estimated ejection fraction is >70%. There is no evidence of regional wall motion abnormalities. 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 Diastolic function is indeterminate on the basis of available data. [id number] left ventricular hypertrophy. Left ventricular outflow tract gradient at rest 49 mm Hg, post Valsalva 66 mm Hg. No mitral regurgitation noted. Right Ventricle Normal right ventricular cavity size and systolic function. Atria The left atrium is normal in size. There is lipomatous hypertrophy of the interatrial septum. The atrial septum has a dumbell appearance. The right atrium is normal in size. Aortic Valve Normal aortic valve structure and function. There is no aortic valve stenosis. There is no aortic valve regurgitation. Mitral Valve The mitral valve appears normal. There is no mitral valve regurgitation. There is no mitral valve stenosis. Pulmonic Valve The pulmonic valve is normal. There is trace pulmonic valve regurgitation. Tricuspid Valve Normal tricuspid valve structure. There is no tricuspid valve regurgitation. Tricuspid regurgitation envelope is inadequate for calculation of right ventricular systolic pressure. Normal right atrial pressure. Great Vessels All visible segments of the aorta are normal in size. The visualized portions of the pulmonary artery and branches are normal. Venous The inferior vena cava is normal in size and collapses greater than 50% with inspiration. Pericardium/Pleural There is no evidence of pericardial effusion. Prior Study Comparison No prior study available for comparison. Measurements 2D Linear Measurements IVSd: 1.28 0.6-0.9/0.6-1.0 cm LVIDd: 4.02 3.9-5.3/4.2-5.9 cm LVIDd Index: 2.32 2.4-3.2/2.2-3.1 cm/m2 LVIDs: 2.86 2.0-3.6 cm LVPWd: 1.04 0.7-1.1 cm LA Diam: 3.40 2.7-3.8/3.0-4.0 cm LAIDs Index: 1.97 1.5-2.3 cm/m2 LV Mass: 197.47 67-162/88-224 g LV Mass Index: 114.14 43-95/49-115 g/m2 LVOT Diam: 1.90 3.0+(-)1.3 cm 2D Systolic Function EF 4C: 80.30 >55% EF 2C: 71.20 >55% EF BiP: 75.80 >55% Mitral Valve MV Pk E: 0.63 MV PK A: 1.19 MV Decel Time: 128.00 E/A: 0.50 E'Medial: 4.24 E/E' Med: 14.80 PHT: 37.00 MVA PHT: 5.95 Decel [place]: 4.91 Aortic Valve AoV Pk Castro: 1.61 AoV Mn Castro: 1.07 AoV VTI: 0.23 AoV Pk Grad: 10.00 Aov Mn Grad: 6.00 [place] Cont.VTI: 2.61 LVOT LVOT Pk Castro: 1.53 LVOT Mn Castro: 1.01 LVOT VTI: 0.21 LVOT Pk Grad: 9.00 LVOT Mn Grad: 5.00 LVOT Diam: 1.90 LVOT Area: 2.84 Diastolic Function MV Pk E: 0.63 MV Pk A: 1.19 E/A: 0.50 E'Medial: 4.24 E/E' Med: 14.80 Right Ventricle TAPSE (mm): 20.80 TVS' Castro: 17.30 Tricuspid Valve RA Press: 3.00 Great Vessels Aorta Sinus of Valsalva: 2.90 2.0-3.5 cm Ao Asc: 3.40 2.1-3.4 cm Pulmonary Valve PV Pk Castro: 2.04 PV Min Castro: 1.27 Peak PV Grad: 17.00 PV Mn Grad: 8.00 Updated in Other Vendor System with Status of Final Tung Tovar MD electronically signed on 08/30/2024 2:18:32 PM with status of Final
[2024-08-30] MEDS: KCl 20 mEq in 5 % Dex/Lact Rin 20 MEQ/1,000 ML IV.SOLN 80 MEQ IVCONT (07:33)
[2024-08-30 07:36] LABS: Glucose, Whole Blood 177 mg/dL (60-115)
--- NOTE | 2024-08-30 08:26 | PC.NURSE ---
Addendum entered by Monique Duran RN 08/30/24 18:35: Patient transitioned to SQ insulin, POC QIDACHS, off heparin gtt, and nicardipine gtt per Dr. Moya.? Plan: Transfer to [facility]. No longer requiring ICU-level care. Original Note: ?Assume care @ 0700? Neuro/Respiratory: Alert and oriente, Fatigue. On RA, clear lung sounds.? Cardiac:? Sinus Rhythm on tele, Nicardipine gtt and heparin gtt per APR GI/: LBM 7/3, +bowel sounds, NPO, Voiding in bedside commode? Skin: Intact Endocrine: on Insulin gtt per APR, POC Q 1 Hr Lines: Peripheral IVs
--- NOTE | 2024-08-30 08:27 | PC.NURSE ---
Assumed care @ 0700? Neuro:? Alert, restless, anxious, requiring frequent redirection.? Respiratory: Decannulated tracheostomy on Trach collar Cardiac: Afib on tele? GI/: s/p abdominal surgery, NPO, POC q6hr : Cuevas in place patent/draining,. Skin: Impaired skin integrity- see skin assessment? Infectious:? IV antibiotics Temp: Afebrile? Lines: ?Peripheral IVs?
[2024-08-30 08:33] LABS: Glucose, Whole Blood 195 mg/dL (60-115)
[2024-08-30 09:02] LABS: Venous Blood Gas Refer to POC result
[2024-08-30 09:29] LABS: Glucose, Whole Blood 199 mg/dL (60-115)
[2024-08-30] MEDS: Insulin Glargine,Hum.rec.anlog 100 UNIT/ML 10 ML VIAL 15 UNIT SUBCUT (09:53)
--- NOTE | 2024-08-30 10:22 | MHC.CM.PN ---
CM MET WITH PT AT BEDSIDE IN ICU. PT IS SLEEPY BUT ABLE TO PARTICIPATE WITH ASSESSMENT. PT IS TRAVELLING VIA RV WITH BACK HOME TO [place]. PT IS FUNCTIONALLY INDEPENDENT AND HAS NO DME/SERVICES. PT CANNOT RECALL IF SHE HAS EVER DONE A HCP BUT DECLINES TO COMPLETE AT THIS TIME. PT CANNOT RECALL NAME OF NEW PCP BACK HOME. DP: HOME VIA RV WITH . CM WILL CONTINUE TO FOLLOW FOR ANY CHANGE TO DC PLAN/NEEDS.
[2024-08-30 10:31] LABS: Glucose, Whole Blood 214 mg/dL (60-115)
[2024-08-30 11:36] LABS: Glucose, Whole Blood 216 mg/dL (60-115)
--- NOTE | 2024-08-30 12:07 | P.PNCC_ITS ---
Subjective Subjective Date of Service: 08/30/24 Interval History: DKA resolved, gap closed, bicarb improving. Complains of nausea Blood cultures and urine cultures growing Gram-negative rods Critical Care Time (minutes): 35 Physical Exam 2 Vital Signs: Vital Signs: Last Vital Signs Temp 97.5 F 08/30/24 08:00 Pulse 107 H 08/30/24 11:00 Resp 19 08/30/24 11:00 BP 149/75 H 08/30/24 11:00 Pulse Ox 98 08/30/24 11:00 O2 Del Method Room Air 08/30/24 11:00 BMI result Body Mass Index 25.0 General: acute distress, ill appearing and tired appearing Nutritional Appearance: well nourished and overweight Eyes: appearance normal, both eyes and all related structures; Alignment and Position: alignment normal and position normal Neck: No lymphadenopathy, no thyromegaly Resp: bilateral air entry equal, occasional added sounds present Cardio: Regular rate, regular rhythm; Heart sounds: S1 normal heart sound present and S2 normal heart sound present GI: soft, nontender, no guarding, no hepatosplenomegaly : bladder normal to inspection, bladder normal to palpation, no renal angle tenderness Skin: no rashes or lesions noted and elasticity normal Neuro: oriented to person, oriented to place, oriented to time and moves all extremities Objective Data Labs 08/30/24 05:43 08/30/24 05:43 Labs: Laboratory Results - last 24 hr 08/29/24 08/29/24 08/29/24 12:16 12:17 13:30 WBC RBC Hgb Hct MCV MCH MCHC RDW Plt Count MPV Immature Gran % (Auto) Neut % (Auto) Lymph % (Auto) [place] % (Auto) Eos % (Auto) Baso % (Auto) Lymph # (Auto) [place] # (Auto) Eos # (Auto) Baso # (Auto) Abs Immat Gran (auto) Absolute Neuts (auto) Absolute Nucleated RBC Nucleated RBC % (auto) Smear Tech's Comments Smear Path Review Hold Purple Top PT INR aPTT Heparin Protocol VBG pH VBG pCO2 VBG pO2 VBG HCO3 VBG O2 Saturation VBG Base Excess Sodium Potassium Chloride Carbon Dioxide Anion Gap BUN Creatinine Estim Creat Clear Calc Estimated GFR POC Glucose 264 H 244 H Random Glucose Calcium Phosphorus Magnesium Total Bilirubin Direct Bilirubin AST ALT Alkaline Phosphatase Troponin I High Sens B-Natriuretic Peptide Total Protein Albumin Procalcitonin 0.96 08/29/24 08/29/24 08/29/24 14:31 14:43 14:50 WBC RBC Hgb Hct MCV MCH MCHC RDW Plt Count MPV Immature Gran % (Auto) Neut % (Auto) Lymph % (Auto) [place] % (Auto) Eos % (Auto) Baso % (Auto) Lymph # (Auto) [place] # (Auto) Eos # (Auto) Baso # (Auto) Abs Immat Gran (auto) Absolute Neuts (auto) Absolute Nucleated RBC Nucleated RBC % (auto) Smear Tech's Comments Smear Path Review Hold Purple Top PT INR aPTT Heparin Protocol VBG pH 7.45 H VBG pCO2 19 VBG pO2 179 VBG HCO3 14 L VBG O2 Saturation 100.0 VBG Base Excess -7.5 Sodium 137 Potassium 3.9 D Chloride 108 Carbon Dioxide 11 L Anion Gap 22 H BUN 20 H Creatinine 0.88 Estim Creat Clear Calc 62.0 Estimated GFR > 60 POC Glucose 216 H Random Glucose 253 H Calcium 8.7 D Phosphorus Magnesium Total Bilirubin Direct Bilirubin AST ALT Alkaline Phosphatase Troponin I High Sens B-Natriuretic Peptide Total Protein Albumin Procalcitonin 08/29/24 08/29/24 08/29/24 15:40 16:29 17:38 WBC RBC Hgb Hct MCV MCH MCHC RDW Plt Count MPV Immature Gran % (Auto) Neut % (Auto) Lymph % (Auto) [place] % (Auto) Eos % (Auto) Baso % (Auto) Lymph # (Auto) [place] # (Auto) Eos # (Auto) Baso # (Auto) Abs Immat Gran (auto) Absolute Neuts (auto) Absolute Nucleated RBC Nucleated RBC % (auto) Smear Tech's Comments Smear Path Review Hold Purple Top PT INR aPTT Heparin Protocol VBG pH VBG pCO2 VBG pO2 VBG HCO3 VBG O2 Saturation VBG Base Excess Sodium Potassium Chloride Carbon Dioxide Anion Gap BUN Creatinine Estim Creat Clear Calc Estimated GFR POC Glucose 213 H 193 H 155 H Random Glucose Calcium Phosphorus Magnesium Total Bilirubin Direct Bilirubin AST ALT Alkaline Phosphatase Troponin I High Sens B-Natriuretic Peptide Total Protein Albumin Procalcitonin 08/29/24 08/29/24 08/29/24 18:33 19:12 19:19 WBC 21.2 H RBC 3.91 L Hgb 11.8 L Hct 33.9 L MCV 86.7 MCH 30.2 MCHC 34.8 RDW 12.6 Plt Count 289 MPV 9.9 Immature Gran % (Auto) 1.4 H Neut % (Auto) 85.9 H Lymph % (Auto) 4.1 L [place] % (Auto) 7.4 Eos % (Auto) 0.7 Baso % (Auto) 0.5 Lymph # (Auto) 0.9 L [place] # (Auto) 1.6 H Eos # (Auto) 0.2 Baso # (Auto) 0.1 Abs Immat Gran (auto) 0.29 H Absolute Neuts (auto) 18.2 H Absolute Nucleated RBC 0.000 Nucleated RBC % (auto) 0.0 Smear Tech's Comments VERIFIED Smear Path Review Hold Purple Top PT INR aPTT Heparin Protocol VBG pH 7.60 H* VBG pCO2 15 VBG pO2 178 VBG HCO3 15 L VBG O2 Saturation 99.0 VBG Base Excess -3.0 Sodium 137 Potassium 3.8 Chloride 106 Carbon Dioxide 17 L Anion Gap 18 BUN 15 Creatinine 0.69 Estim Creat Clear Calc 79.1 Estimated GFR > 60 POC Glucose 159 H Random Glucose 165 H Calcium 8.4 Phosphorus Magnesium Total Bilirubin Direct Bilirubin AST ALT Alkaline Phosphatase Troponin I High Sens 272.6 H* D B-Natriuretic Peptide 541 H Total Protein Albumin Procalcitonin 08/29/24 08/29/24 08/29/24 19:29 20:35 21:37 WBC RBC Hgb Hct MCV MCH MCHC RDW Plt Count MPV Immature Gran % (Auto) Neut % (Auto) Lymph % (Auto) [place] % (Auto) Eos % (Auto) Baso % (Auto) Lymph # (Auto) [place] # (Auto) Eos # (Auto) Baso # (Auto) Abs Immat Gran (auto) Absolute Neuts (auto) Absolute Nucleated RBC Nucleated RBC % (auto) Smear Tech's Comments Smear Path Review Hold Purple Top PT INR aPTT Heparin Protocol VBG pH VBG pCO2 VBG pO2 VBG HCO3 VBG O2 Saturation VBG Base Excess Sodium Potassium Chloride Carbon Dioxide Anion Gap BUN Creatinine Estim Creat Clear Calc Estimated GFR POC Glucose 162 H 169 H 180 H Random Glucose Calcium Phosphorus Magnesium Total Bilirubin Direct Bilirubin AST ALT Alkaline Phosphatase Troponin I High Sens B-Natriuretic Peptide Total Protein Albumin Procalcitonin 08/29/24 08/29/24 08/29/24 21:54 22:00 22:35 WBC RBC Hgb Hct MCV MCH MCHC RDW Plt Count MPV Immature Gran % (Auto) Neut % (Auto) Lymph % (Auto) [place] % (Auto) Eos % (Auto) Baso % (Auto) Lymph # (Auto) [place] # (Auto) Eos # (Auto) Baso # (Auto) Abs Immat Gran (auto) Absolute Neuts (auto) Absolute Nucleated RBC Nucleated RBC % (auto) Smear Tech's Comments Smear Path Review Hold Purple Top PT 11.7 INR 1.0 aPTT Heparin Protocol 22.2 L VBG pH 7.51 H VBG pCO2 21 VBG pO2 126 VBG HCO3 17 L VBG O2 Saturation 99.0 VBG Base Excess -3.4 Sodium Potassium Chloride Carbon Dioxide Anion Gap BUN Creatinine Estim Creat Clear Calc Estimated GFR POC Glucose 176 H Random Glucose Calcium Phosphorus Magnesium Total Bilirubin Direct Bilirubin AST ALT Alkaline Phosphatase Troponin I High Sens 453.7 H* D B-Natriuretic Peptide Total Protein Albumin Procalcitonin 08/29/24 08/30/24 08/30/24 23:30 00:29 01:42 WBC RBC Hgb Hct MCV MCH MCHC RDW Plt Count MPV Immature Gran % (Auto) Neut % (Auto) Lymph % (Auto) [place] % (Auto) Eos % (Auto) Baso % (Auto) Lymph # (Auto) [place] # (Auto) Eos # (Auto) Baso # (Auto) Abs Immat Gran (auto) Absolute Neuts (auto) Absolute Nucleated RBC Nucleated RBC % (auto) Smear Tech's Comments Smear Path Review Hold Purple Top PT INR aPTT Heparin Protocol VBG pH VBG pCO2 VBG pO2 VBG HCO3 VBG O2 Saturation VBG Base Excess Sodium Potassium Chloride Carbon Dioxide Anion Gap BUN Creatinine Estim Creat Clear Calc Estimated GFR POC Glucose 202 H 212 H 205 H Random Glucose Calcium Phosphorus Magnesium Total Bilirubin Direct Bilirubin AST ALT Alkaline Phosphatase Troponin I High Sens B-Natriuretic Peptide Total Protein Albumin Procalcitonin 08/30/24 08/30/24 08/30/24 02:40 03:48 04:44 WBC RBC Hgb Hct MCV MCH MCHC RDW Plt Count MPV Immature Gran % (Auto) Neut % (Auto) Lymph % (Auto) [place] % (Auto) Eos % (Auto) Baso % (Auto) Lymph # (Auto) [place] # (Auto) Eos # (Auto) Baso # (Auto) Abs Immat Gran (auto) Absolute Neuts (auto) Absolute Nucleated RBC Nucleated RBC % (auto) Smear Tech's Comments Smear Path Review Hold Purple Top PT INR aPTT Heparin Protocol VBG pH VBG pCO2 VBG pO2 VBG HCO3 VBG O2 Saturation VBG Base Excess Sodium Potassium Chloride Carbon Dioxide Anion Gap BUN Creatinine Estim Creat Clear Calc Estimated GFR POC Glucose 186 H 180 H 196 H Random Glucose Calcium Phosphorus Magnesium Total Bilirubin Direct Bilirubin AST ALT Alkaline Phosphatase Troponin I High Sens B-Natriuretic Peptide Total Protein Albumin Procalcitonin 08/30/24 08/30/24 08/30/24 04:45 04:48 05:40 WBC Cancelled RBC Cancelled Hgb Cancelled Hct Cancelled MCV Cancelled MCH Cancelled MCHC Cancelled RDW Cancelled Plt Count Cancelled MPV Cancelled Immature Gran % (Auto) Neut % (Auto) Lymph % (Auto) [place] % (Auto) Eos % (Auto) Baso % (Auto) Lymph # (Auto) [place] # (Auto) Eos # (Auto) Baso # (Auto) Abs Immat Gran (auto) Absolute Neuts (auto) Absolute Nucleated RBC Cancelled Nucleated RBC % (auto) Cancelled Smear Tech's Comments Smear Path Review Hold Purple Top SEE NOTE PT 11.8 INR 1.0 aPTT Heparin Protocol 26.6 L VBG pH 7.50 H VBG pCO2 22 VBG pO2 64 VBG HCO3 18 L VBG O2 Saturation 92.0 VBG Base Excess -2.9 Sodium 136 Potassium 3.3 Chloride 103 Carbon Dioxide 18 L Anion Gap 18 BUN 15 Creatinine 0.71 Estim Creat Clear Calc 76.8 Estimated GFR > 60 POC Glucose 181 H Random Glucose 187 H Calcium 8.8 Phosphorus 2.1 L Magnesium 1.7 Total Bilirubin 0.4 Direct Bilirubin 0.2 AST 21 ALT 13 Alkaline Phosphatase 96 Troponin I High Sens 529.7 H* B-Natriuretic Peptide Total Protein 7.0 Albumin 3.9 Procalcitonin 08/30/24 08/30/24 08/30/24 05:43 06:34 07:23 WBC 21.9 H RBC 4.05 L Hgb 12.2 Hct 34.3 L MCV 84.7 MCH 30.1 MCHC 35.6 H RDW 12.7 Plt Count 362 D MPV 10.0 Immature Gran % (Auto) 1.0 H Neut % (Auto) 86.0 H Lymph % (Auto) 5.3 L [place] % (Auto) 7.4 Eos % (Auto) 0.0 Baso % (Auto) 0.3 Lymph # (Auto) 1.2 [place] # (Auto) 1.6 H Eos # (Auto) 0.0 Baso # (Auto) 0.1 Abs Immat Gran (auto) 0.22 H Absolute Neuts (auto) 18.9 H Absolute Nucleated RBC 0.000 Nucleated RBC % (auto) 0.0 Smear Tech's Comments VERIFIED Smear Path Review SEE NOTE Hold Purple Top PT INR aPTT Heparin Protocol VBG pH VBG pCO2 VBG pO2 VBG HCO3 VBG O2 Saturation VBG Base Excess Sodium 135 Potassium 3.3 Chloride 104 Carbon Dioxide 18 L Anion Gap 16 BUN 15 Creatinine 0.67 Estim Creat Clear Calc 81.4 Estimated GFR > 60 POC Glucose 183 H 177 H Random Glucose 190 H Calcium 8.7 Phosphorus Magnesium Total Bilirubin 0.3 Direct Bilirubin AST 20 ALT 15 Alkaline Phosphatase 100 Troponin I High Sens B-Natriuretic Peptide Total Protein 6.9 Albumin 3.8 Procalcitonin 08/30/24 08/30/24 08/30/24 08:28 09:26 10:28 WBC RBC Hgb Hct MCV MCH MCHC RDW Plt Count MPV Immature Gran % (Auto) Neut % (Auto) Lymph % (Auto) [place] % (Auto) Eos % (Auto) Baso % (Auto) Lymph # (Auto) [place] # (Auto) Eos # (Auto) Baso # (Auto) Abs Immat Gran (auto) Absolute Neuts (auto) Absolute Nucleated RBC Nucleated RBC % (auto) Smear Tech's Comments Smear Path Review Hold Purple Top PT INR aPTT Heparin Protocol VBG pH VBG pCO2 VBG pO2 VBG HCO3 VBG O2 Saturation VBG Base Excess Sodium Potassium Chloride Carbon Dioxide Anion Gap BUN Creatinine Estim Creat Clear Calc Estimated GFR POC Glucose 195 H 199 H 214 H Random Glucose Calcium Phosphorus Magnesium Total Bilirubin Direct Bilirubin AST ALT Alkaline Phosphatase Troponin I High Sens B-Natriuretic Peptide Total Protein Albumin Procalcitonin 08/30/24 11:20 WBC RBC Hgb Hct MCV MCH MCHC RDW Plt Count MPV Immature Gran % (Auto) Neut % (Auto) Lymph % (Auto) [place] % (Auto) Eos % (Auto) Baso % (Auto) Lymph # (Auto) [place] # (Auto) Eos # (Auto) Baso # (Auto) Abs Immat Gran (auto) Absolute Neuts (auto) Absolute Nucleated RBC Nucleated RBC % (auto) Smear Tech's Comments Smear Path Review Hold Purple Top PT INR aPTT Heparin Protocol VBG pH VBG pCO2 VBG pO2 VBG HCO3 VBG O2 Saturation VBG Base Excess Sodium Potassium Chloride Carbon Dioxide Anion Gap BUN Creatinine Estim Creat Clear Calc Estimated GFR POC Glucose 216 H Random Glucose Calcium Phosphorus Magnesium Total Bilirubin Direct Bilirubin AST ALT Alkaline Phosphatase Troponin I High Sens B-Natriuretic Peptide Total Protein Albumin Procalcitonin Microbiology Microbiology Results: Microbiology 08/29/24 Unknown Urine clean catch - Clean Catch Midstream Urine Culture - Preliminary Gram negative blanquita 08/29/24 10:16 Blood - Venous Blood Culture - Preliminary Prelim: GNR Gram Stain only 08/29/24 10:16 Blood - Venous Blood Culture - Preliminary Prelim: GNR Gram Stain only Progress Note: A&P Assessment and plan (1) DKA (diabetic ketoacidosis): Status: Acute (2) UTI (urinary tract infection): Status: Acute (3) Sepsis: Status: Acute (4) Hypertensive urgency: Status: Acute (5) NSTEMI (non-ST elevated myocardial infarction): Status: Acute Plan Diabetic ketoacidosis: Secondary to urinary tract infection Cap Close twice, we will switch her from insulin drip to subcu insulin. Not sure if the patient is on long-acting insulin at home as she is slightly confused and does not know. She recently started Ozempic 4 weeks ago. We will switch her to insulin Lantus 15 units along with sliding scale insulin. We will start her on diabetic diet. Hypertensive urgency: On nicardipine drip, we will restart home ARB and titrate off nicardipine as tolerated. NSTEMI: Has a new RBBB, we do not have previous EKGs to compare. Troponin in the range of 200- 529. Elevation not significant enough as per Cardiology. We will stop heparin drip and we will order an echo. Urinary tract infection: History of recent travel for over a period of month in a RV Started on ceftriaxone, urine and blood cultures growing Gram-negative rods Leukocytosis secondary to urinary tract Has significant nausea stopped, started on pantoprazole, promethazine and sucralfate. No response to ondansetron. will restart home meds including bupropion, gabapentin, fluoxetine. Prophylaxis: Lovenox, pantoprazole Quality Stroke Does the patient have a stroke diagnosis?: No VTE Prior VTE?: No VTE Risk Level:: Medical - low VTE Device Contraindication: N/A - Device Ordered VTE Drug Contraindication: Treatment Not Indicated
--- NOTE | 2024-08-30 12:44 | PM.CNCAR ---
History of Present Illness History of Present Illness Date of Service: 08/30/24 Requesting physician: Jimenez Moya Chief complaint: Acute DKA Narrative: 64-year-old female who we have been asked to see for elevated troponin levels. She is presenting with confusion, urinary tract infection and diabetic ketoacidosis. She is currently quite confused and history was limited. She is saying she is feeling nauseous but denying chest pains. No shortness of breath reported but as mentioned history is limited. She has had elevated blood pressures on admission and continues to have elevated BP. Her high sensitivity troponin levels were elevated. EKGs has shown right bundle-branch block without any significant ischemic changes. [facility] Past Medical History Medical History (Updated 08/30/24 @ 12:10 by Jimenez Moya MD) Hypertension Diabetes SID (obstructive sleep apnea) Surgical History Surgical History (Updated 08/29/24 @ 13:12 by Monique Duran RN) H/O: hysterectomy Social History Social History Household Members: Spouse Housing: House Do you presently have visiting nurse or other home services: No Patient Tobacco Use Status: Never used Tobacco Smoked in Last 30 Days: No Use of substances other than those prescribed or required for medical reasons: No Currently Displaying Signs/Symptoms of Drug Intoxication Withdrawal: No Have you been hit, kicked, punched, or otherwise hurt by someone within the past year? If so, by whom?: No Do you feel safe in your current relationship?: Yes Is there a partner from a previous relationship who is making you feel unsafe now?: No Are you made to feel afraid or neglected: No Advance Directives: Yes Advance Directives Information Provided: Yes Advance Directives on File: No Advance Directives Date on File: 08/29/24 Do you have a plan to hurt others: No Plan Patient : No : No service: No Meds Allergies Allergy/AdvReac Type Severity Reaction Status Date / Time No Known Allergies Allergy Verified 08/29/24 07:43 Active Medications: Current Medications Atorvastatin Calcium (Atorvastatin Calcium 20 Mg Tablet) 20 mg PO BEDTIME [facility] Bupropion HCl (Bupropion Hcl Xl 300 Mg Tab.Er.24h) 300 mg PO DAILY [facility] Ceftriaxone Sodium (Ceftriaxone Sodium 1 Gm Vial) 1 gm IVPUSH Q24H [facility] Last Admin: 08/30/24 08:11 Dose: 1 gm Dextrose (Dextrose 50 % 25 Gm/50 Ml Syringe) 25 gm IVPUSH Q15M PRN; Protocol PRN Reason: per Hypoglycemia Standing Ord. Fluoxetine HCl (Fluoxetine Hcl 20 Mg Capsule) 80 mg PO DAILY [facility] Glucose (Glucose Gel 15 Gm Gel..Gram.) 15 gm PO Q15M PRN; Protocol PRN Reason: per Hypoglycemia Standing Ord. Nicardipine HCl 25 mg/ Sodium (Chloride) 250 mls @ 0 mls/hr IVCONT .Q0M [facility]; Protocol Last Admin: 08/30/24 06:57 Dose: 2.5 mg/hr, 25 mls/hr Insulin Glargine (Insulin Glargine,Hum.Rec.Anlog 100 Unit/Ml 10 Ml Vial) 15 unit SUBCUT DAILY [facility] Last Admin: 08/30/24 09:53 Dose: 15 unit Insulin Human Lispro (Insulin Lispro 100 Unit/Ml 3 Ml Vial) 0 unit SUBCUT QIDACHS [facility]; Protocol Stop: 08/31/24 09:31 Last Admin: 08/30/24 12:14 Dose: 4 unit Losartan Potassium (Losartan Potassium 50 Mg Tablet) 50 mg PO DAILY [facility]; Protocol Last Admin: 08/30/24 12:14 Dose: 50 mg Pantoprazole Sodium (Pantoprazole Sodium 40 Mg/10 Ml Vial) 40 mg IVPUSH DAILY@0630 [facility] Last Admin: 08/30/24 12:42 Dose: 40 mg Pregabalin (Pregabalin 75 Mg Capsule) 75 mg PO BID [facility] Last Admin: 08/30/24 12:42 Dose: 75 mg Promethazine HCl (Promethazine Hcl 25 Mg/Ml Vial) 12.5 mg IM Q4H PRN PRN Reason: Nausea and Vomiting Last Admin: 08/30/24 10:58 Dose: 12.5 mg Scopolamine (Scopolamine 1.5 Mg Patch.Td.3) 1.5 mg EAR-BEHIND Q72H [facility] Last Admin: 08/29/24 18:16 Dose: 1.5 mg Sucralfate (Sucralfate Oral Suspension 1 Gm/10 Ml Oral.Susp) 1 gm PO QIDACHS [facility] Tizanidine HCl (Tizanidine Hcl 4 Mg Tablet) 4 mg PO TID PRN PRN Reason: muscle spasms Zolpidem Tartrate (Zolpidem Tartrate 5 Mg Tablet) 5 mg PO BEDTIME PRN PRN Reason: Insomnia Home Medications ?Medication ?Instructions ?Recorded ?Confirmed ?Last Taken ?Type bupropion HCl 150 mg 24 hr tablet, 150 mg PO DAILY 08/29/24 08/29/24 08/28/24 History extended release bupropion HCl 300 mg 24 hr tablet, 300 mg PO DAILY 08/29/24 08/29/24 08/28/24 History extended release celecoxib 200 mg capsule 200 mg PO BID 08/29/24 08/29/24 08/28/24 History ezetimibe 10 mg tablet 10 mg PO DAILY 08/29/24 08/29/24 08/28/24 History fluoxetine 40 mg capsule 80 mg PO DAILY 08/29/24 08/29/24 08/28/24 History guanfacine 3 mg tablet,extended 3 mg PO BEDTIME 08/29/24 08/29/24 08/28/24 History release 24 hr olmesartan 40 1 tab PO DAILY 08/29/24 08/29/24 08/28/24 History mg-hydrochlorothiazide 12.5 mg tablet ondansetron 4 mg disintegrating 4 mg PO DAILY PRN nausea/vomiting 08/29/24 08/29/24 Unknown History tablet pregabalin 75 mg capsule 75 mg PO BID 08/29/24 08/29/24 08/28/24 History semaglutide 1 mg/dose (4 mg/3 mL) 1 mg subcut HERNÁNDEZ@0900 08/29/24 08/29/24 08/22/24 History subcutaneous pen injector (Ozempic) simvastatin 40 mg tablet 40 mg PO BEDTIME 08/29/24 08/29/24 08/28/24 History tizanidine 4 mg tablet 4 mg PO TID PRN muscle spasms 08/29/24 08/29/24 Unknown History zolpidem 5 mg tablet 5 mg PO BEDTIME PRN Insomnia 08/29/24 08/29/24 Unknown History Physical Exam Vital Signs: Vital Signs: Last Vital Signs Temp 97.0 F 08/30/24 12:00 Pulse 111 H 08/30/24 12:00 Resp 17 08/30/24 12:00 BP 157/73 H 08/30/24 12:14 Pulse Ox 99 08/30/24 12:00 O2 Del Method Room Air 08/30/24 12:00 BMI result Body Mass Index 25.0 GENERAL APPEARANCE: Confused. Lethargic. NECK: no carotid bruit, no jugular venous distention. SKIN: no suspicious lesions, warm and dry. HEART: no murmurs, regular rate and rhythm. Tachycardic. LUNGS: clear to auscultation bilaterally. ABDOMEN: soft, nontender. EXTREMITIES: no edema. PERIPHERAL PULSES: equal. NEUROLOGIC: Alert and oriented x1. Objective Labs and Meds 08/30/24 05:43 08/30/24 05:43 Lab results: Laboratory Results - last 24 hr 08/29/24 08/29/24 08/29/24 12:17 13:30 14:31 WBC RBC Hgb Hct MCV MCH MCHC RDW Plt Count MPV Immature Gran % (Auto) Neut % (Auto) Lymph % (Auto) Garvin % (Auto) Eos % (Auto) Baso % (Auto) Lymph # (Auto) Garvin # (Auto) Eos # (Auto) Baso # (Auto) Abs Immat Gran (auto) Absolute Neuts (auto) Absolute Nucleated RBC Nucleated RBC % (auto) Smear Tech's Comments Smear Path Review Hold Purple Top PT INR aPTT Heparin Protocol VBG pH VBG pCO2 VBG pO2 VBG HCO3 VBG O2 Saturation VBG Base Excess Sodium Potassium Chloride Carbon Dioxide Anion Gap BUN Creatinine Estim Creat Clear Calc Estimated GFR POC Glucose 244 H 216 H Random Glucose Calcium Phosphorus Magnesium Total Bilirubin Direct Bilirubin AST ALT Alkaline Phosphatase Troponin I High Sens B-Natriuretic Peptide Total Protein Albumin Procalcitonin 0.96 08/29/24 08/29/24 08/29/24 14:43 14:50 15:40 WBC RBC Hgb Hct MCV MCH MCHC RDW Plt Count MPV Immature Gran % (Auto) Neut % (Auto) Lymph % (Auto) Garvin % (Auto) Eos % (Auto) Baso % (Auto) Lymph # (Auto) Garvin # (Auto) Eos # (Auto) Baso # (Auto) Abs Immat Gran (auto) Absolute Neuts (auto) Absolute Nucleated RBC Nucleated RBC % (auto) Smear Tech's Comments Smear Path Review Hold Purple Top PT INR aPTT Heparin Protocol VBG pH 7.45 H VBG pCO2 19 VBG pO2 179 VBG HCO3 14 L VBG O2 Saturation 100.0 VBG Base Excess -7.5 Sodium 137 Potassium 3.9 D Chloride 108 Carbon Dioxide 11 L Anion Gap 22 H BUN 20 H Creatinine 0.88 Estim Creat Clear Calc 62.0 Estimated GFR > 60 POC Glucose 213 H Random Glucose 253 H Calcium 8.7 D Phosphorus Magnesium Total Bilirubin Direct Bilirubin AST ALT Alkaline Phosphatase Troponin I High Sens B-Natriuretic Peptide Total Protein Albumin Procalcitonin 08/29/24 08/29/24 08/29/24 16:29 17:38 18:33 WBC RBC Hgb Hct MCV MCH MCHC RDW Plt Count MPV Immature Gran % (Auto) Neut % (Auto) Lymph % (Auto) Garvin % (Auto) Eos % (Auto) Baso % (Auto) Lymph # (Auto) Garvin # (Auto) Eos # (Auto) Baso # (Auto) Abs Immat Gran (auto) Absolute Neuts (auto) Absolute Nucleated RBC Nucleated RBC % (auto) Smear Tech's Comments Smear Path Review Hold Purple Top PT INR aPTT Heparin Protocol VBG pH VBG pCO2 VBG pO2 VBG HCO3 VBG O2 Saturation VBG Base Excess Sodium Potassium Chloride Carbon Dioxide Anion Gap BUN Creatinine Estim Creat Clear Calc Estimated GFR POC Glucose 193 H 155 H 159 H Random Glucose Calcium Phosphorus Magnesium Total Bilirubin Direct Bilirubin AST ALT Alkaline Phosphatase Troponin I High Sens B-Natriuretic Peptide Total Protein Albumin Procalcitonin 08/29/24 08/29/24 08/29/24 19:12 19:19 19:29 WBC 21.2 H RBC 3.91 L Hgb 11.8 L Hct 33.9 L MCV 86.7 MCH 30.2 MCHC 34.8 RDW 12.6 Plt Count 289 MPV 9.9 Immature Gran % (Auto) 1.4 H Neut % (Auto) 85.9 H Lymph % (Auto) 4.1 L Garvin % (Auto) 7.4 Eos % (Auto) 0.7 Baso % (Auto) 0.5 Lymph # (Auto) 0.9 L Garvin # (Auto) 1.6 H Eos # (Auto) 0.2 Baso # (Auto) 0.1 Abs Immat Gran (auto) 0.29 H Absolute Neuts (auto) 18.2 H Absolute Nucleated RBC 0.000 Nucleated RBC % (auto) 0.0 Smear Tech's Comments VERIFIED Smear Path Review Hold Purple Top PT INR aPTT Heparin Protocol VBG pH 7.60 H* VBG pCO2 15 VBG pO2 178 VBG HCO3 15 L VBG O2 Saturation 99.0 VBG Base Excess -3.0 Sodium 137 Potassium 3.8 Chloride 106 Carbon Dioxide 17 L Anion Gap 18 BUN 15 Creatinine 0.69 Estim Creat Clear Calc 79.1 Estimated GFR > 60 POC Glucose 162 H Random Glucose 165 H Calcium 8.4 Phosphorus Magnesium Total Bilirubin Direct Bilirubin AST ALT Alkaline Phosphatase Troponin I High Sens 272.6 H* D B-Natriuretic Peptide 541 H Total Protein Albumin Procalcitonin 08/29/24 08/29/24 08/29/24 20:35 21:37 21:54 WBC RBC Hgb Hct MCV MCH MCHC RDW Plt Count MPV Immature Gran % (Auto) Neut % (Auto) Lymph % (Auto) Garvin % (Auto) Eos % (Auto) Baso % (Auto) Lymph # (Auto) Garvin # (Auto) Eos # (Auto) Baso # (Auto) Abs Immat Gran (auto) Absolute Neuts (auto) Absolute Nucleated RBC Nucleated RBC % (auto) Smear Tech's Comments Smear Path Review Hold Purple Top PT 11.7 INR 1.0 aPTT Heparin Protocol 22.2 L VBG pH VBG pCO2 VBG pO2 VBG HCO3 VBG O2 Saturation VBG Base Excess Sodium Potassium Chloride Carbon Dioxide Anion Gap BUN Creatinine Estim Creat Clear Calc Estimated GFR POC Glucose 169 H 180 H Random Glucose Calcium Phosphorus Magnesium Total Bilirubin Direct Bilirubin AST ALT Alkaline Phosphatase Troponin I High Sens 453.7 H* D B-Natriuretic Peptide Total Protein Albumin Procalcitonin 08/29/24 08/29/24 08/29/24 22:00 22:35 23:30 WBC RBC Hgb Hct MCV MCH MCHC RDW Plt Count MPV Immature Gran % (Auto) Neut % (Auto) Lymph % (Auto) Garvin % (Auto) Eos % (Auto) Baso % (Auto) Lymph # (Auto) Garvin # (Auto) Eos # (Auto) Baso # (Auto) Abs Immat Gran (auto) Absolute Neuts (auto) Absolute Nucleated RBC Nucleated RBC % (auto) Smear Tech's Comments Smear Path Review Hold Purple Top PT INR aPTT Heparin Protocol VBG pH 7.51 H VBG pCO2 21 VBG pO2 126 VBG HCO3 17 L VBG O2 Saturation 99.0 VBG Base Excess -3.4 Sodium Potassium Chloride Carbon Dioxide Anion Gap BUN Creatinine Estim Creat Clear Calc Estimated GFR POC Glucose 176 H 202 H Random Glucose Calcium Phosphorus Magnesium Total Bilirubin Direct Bilirubin AST ALT Alkaline Phosphatase Troponin I High Sens B-Natriuretic Peptide Total Protein Albumin Procalcitonin 08/30/24 08/30/24 08/30/24 00:29 01:42 02:40 WBC RBC Hgb Hct MCV MCH MCHC RDW Plt Count MPV Immature Gran % (Auto) Neut % (Auto) Lymph % (Auto) Garvin % (Auto) Eos % (Auto) Baso % (Auto) Lymph # (Auto) Garvin # (Auto) Eos # (Auto) Baso # (Auto) Abs Immat Gran (auto) Absolute Neuts (auto) Absolute Nucleated RBC Nucleated RBC % (auto) Smear Tech's Comments Smear Path Review Hold Purple Top PT INR aPTT Heparin Protocol VBG pH VBG pCO2 VBG pO2 VBG HCO3 VBG O2 Saturation VBG Base Excess Sodium Potassium Chloride Carbon Dioxide Anion Gap BUN Creatinine Estim Creat Clear Calc Estimated GFR POC Glucose 212 H 205 H 186 H Random Glucose Calcium Phosphorus Magnesium Total Bilirubin Direct Bilirubin AST ALT Alkaline Phosphatase Troponin I High Sens B-Natriuretic Peptide Total Protein Albumin Procalcitonin 08/30/24 08/30/24 08/30/24 03:48 04:44 04:45 WBC Cancelled RBC Cancelled Hgb Cancelled Hct Cancelled MCV Cancelled MCH Cancelled MCHC Cancelled RDW Cancelled Plt Count Cancelled MPV Cancelled Immature Gran % (Auto) Neut % (Auto) Lymph % (Auto) Garvin % (Auto) Eos % (Auto) Baso % (Auto) Lymph # (Auto) Garvin # (Auto) Eos # (Auto) Baso # (Auto) Abs Immat Gran (auto) Absolute Neuts (auto) Absolute Nucleated RBC Cancelled Nucleated RBC % (auto) Cancelled Smear Tech's Comments Smear Path Review Hold Purple Top SEE NOTE PT 11.8 INR 1.0 aPTT Heparin Protocol 26.6 L VBG pH VBG pCO2 VBG pO2 VBG HCO3 VBG O2 Saturation VBG Base Excess Sodium 136 Potassium 3.3 Chloride 103 Carbon Dioxide 18 L Anion Gap 18 BUN 15 Creatinine 0.71 Estim Creat Clear Calc 76.8 Estimated GFR > 60 POC Glucose 180 H 196 H Random Glucose 187 H Calcium 8.8 Phosphorus 2.1 L Magnesium 1.7 Total Bilirubin 0.4 Direct Bilirubin 0.2 AST 21 ALT 13 Alkaline Phosphatase 96 Troponin I High Sens 529.7 H* B-Natriuretic Peptide Total Protein 7.0 Albumin 3.9 Procalcitonin 08/30/24 08/30/24 08/30/24 04:48 05:40 05:43 WBC 21.9 H RBC 4.05 L Hgb 12.2 Hct 34.3 L MCV 84.7 MCH 30.1 MCHC 35.6 H RDW 12.7 Plt Count 362 D MPV 10.0 Immature Gran % (Auto) 1.0 H Neut % (Auto) 86.0 H Lymph % (Auto) 5.3 L Garvin % (Auto) 7.4 Eos % (Auto) 0.0 Baso % (Auto) 0.3 Lymph # (Auto) 1.2 Garvin # (Auto) 1.6 H Eos # (Auto) 0.0 Baso # (Auto) 0.1 Abs Immat Gran (auto) 0.22 H Absolute Neuts (auto) 18.9 H Absolute Nucleated RBC 0.000 Nucleated RBC % (auto) 0.0 Smear Tech's Comments VERIFIED Smear Path Review SEE NOTE Hold Purple Top PT INR aPTT Heparin Protocol VBG pH 7.50 H VBG pCO2 22 VBG pO2 64 VBG HCO3 18 L VBG O2 Saturation 92.0 VBG Base Excess -2.9 Sodium 135 Potassium 3.3 Chloride 104 Carbon Dioxide 18 L Anion Gap 16 BUN 15 Creatinine 0.67 Estim Creat Clear Calc 81.4 Estimated GFR > 60 POC Glucose 181 H Random Glucose 190 H Calcium 8.7 Phosphorus Magnesium Total Bilirubin 0.3 Direct Bilirubin AST 20 ALT 15 Alkaline Phosphatase 100 Troponin I High Sens B-Natriuretic Peptide Total Protein 6.9 Albumin 3.8 Procalcitonin 08/30/24 08/30/24 08/30/24 06:34 07:23 08:28 WBC RBC Hgb Hct MCV MCH MCHC RDW Plt Count MPV Immature Gran % (Auto) Neut % (Auto) Lymph % (Auto) Garvin % (Auto) Eos % (Auto) Baso % (Auto) Lymph # (Auto) Garvin # (Auto) Eos # (Auto) Baso # (Auto) Abs Immat Gran (auto) Absolute Neuts (auto) Absolute Nucleated RBC Nucleated RBC % (auto) Smear Tech's Comments Smear Path Review Hold Purple Top PT INR aPTT Heparin Protocol VBG pH VBG pCO2 VBG pO2 VBG HCO3 VBG O2 Saturation VBG Base Excess Sodium Potassium Chloride Carbon Dioxide Anion Gap BUN Creatinine Estim Creat Clear Calc Estimated GFR POC Glucose 183 H 177 H 195 H Random Glucose Calcium Phosphorus Magnesium Total Bilirubin Direct Bilirubin AST ALT Alkaline Phosphatase Troponin I High Sens B-Natriuretic Peptide Total Protein Albumin Procalcitonin 08/30/24 08/30/24 08/30/24 09:26 10:28 11:20 WBC RBC Hgb Hct MCV MCH MCHC RDW Plt Count MPV Immature Gran % (Auto) Neut % (Auto) Lymph % (Auto) Garvin % (Auto) Eos % (Auto) Baso % (Auto) Lymph # (Auto) Garvin # (Auto) Eos # (Auto) Baso # (Auto) Abs Immat Gran (auto) Absolute Neuts (auto) Absolute Nucleated RBC Nucleated RBC % (auto) Smear Tech's Comments Smear Path Review Hold Purple Top PT INR aPTT Heparin Protocol VBG pH VBG pCO2 VBG pO2 VBG HCO3 VBG O2 Saturation VBG Base Excess Sodium Potassium Chloride Carbon Dioxide Anion Gap BUN Creatinine Estim Creat Clear Calc Estimated GFR POC Glucose 199 H 214 H 216 H Random Glucose Calcium Phosphorus Magnesium Total Bilirubin Direct Bilirubin AST ALT Alkaline Phosphatase Troponin I High Sens B-Natriuretic Peptide Total Protein Albumin Procalcitonin Assessment and Plan (1) Hypertensive urgency: Status: Acute (2) NSTEMI (non-ST elevated myocardial infarction): Status: Acute (3) DKA (diabetic ketoacidosis): Status: Acute Plan [age] year female presenting with diabetic ketoacidosis. She had arranged tract infection which is likely etiology for DKA. She has elevated troponin levels in this setting. [place] can trigger DKA but it should be obvious ischemia with EKG changes and troponin elevation higher than what we have expected here. Overall I think this is a type 2 event due to DKA/sepsis and elevated blood pressures. Monitor blood pressures closely and titrate medications. Recommend baby aspirin if there is no overt bleeding or concerns for bleeding. Echocardiography to assess LV function. Thank you for allowing me to participate in the care of your patient. Please feel free to contact me if you have any questions. Procedures Date of Service Date of Service: 08/30/24
[2024-08-30 13:00] LABS: Anion Gap 18 (12-20); Blood Urea Nitrogen 14 mg/dL (9-16); Calcium 9.0 mg/dL (8.4-10.2); Carbon Dioxide 18 mmol/L (22-29); Chloride 104 mmol/L (96-108); Creatinine Clr Calc Pharmacy 80.3; Estimated Glomerular Filt Rate > 60; Potassium 3.6 mmol/L (3.3-5.1); Sodium 136 mmol/L (135-145)
[2024-08-30] MEDS: buPROPion HCl XL 300 MG TAB.ER.24H PO (13:30)
[2024-08-30 16:32] LABS: Glucose, Whole Blood 273 mg/dL (60-115)
[2024-08-30] MEDS: Sucralfate Oral Suspension 1 GM/10 ML ORAL.SUSP PO ×2 (16:54→21:27)
[2024-08-30 20:40] LABS: Glucose, Whole Blood 247 mg/dL (60-115)
[2024-08-30 21:19] LABS: Glucose, Whole Blood 264 mg/dL (60-115)
[2024-08-31 04:00] VITALS: BP 148/70; PULSE 84; RESP 18; TEMP 37.2; O2SAT 95
[2024-08-31 07:30] VITALS: BP 143/66; PULSE 78; RESP 18; TEMP 36.6; O2SAT 96
[2024-08-31 08:09] LABS: Glucose, Whole Blood 301 mg/dL (60-115)
[2024-08-31] MEDS: Insulin Glargine,Hum.rec.anlog 100 UNIT/ML 10 ML VIAL 15 UNIT SUBCUT (08:22)
[2024-08-31] MEDS: Sucralfate Oral Suspension 1 GM/10 ML ORAL.SUSP PO ×4 (08:23→20:19)
[2024-08-31] MEDS: buPROPion HCl XL 300 MG TAB.ER.24H PO (08:24)
[2024-08-31] MEDS: Lactated Ringers 1,000 ML 80 ML IVCONT ×2 (08:25→20:20)
--- NOTE | 2024-08-31 10:52 | HO.PM.IMPN ---
Subjective Subjective Date of Service: 08/31/24 Interval History: still with nausea Physical Exam Vital Signs: Vital Signs: Last Vital Signs Temp 98 F 08/31/24 07:30 Pulse 78 08/31/24 07:30 Resp 18 08/31/24 07:30 BP 143/66 H 08/31/24 07:30 Pulse Ox 96 08/31/24 07:30 O2 Del Method Room Air 08/31/24 07:30 O2 Flow Rate 3 08/30/24 20:00 BMI result Body Mass Index 25.0 General: AO X 3, no acute distress Resp: CTA bilateral, no accessory muscles used CVS: S1,S2,RRR GI: soft, non tender, non distended Neuro: motor grossly intact, alert Psych: appropriate affect, appropriate insight Objective Data Active Medications Atorvastatin Calcium (Atorvastatin Calcium 20 Mg Tablet) 20 mg PO BEDTIME [facility] Last Admin: 08/30/24 21:27 Dose: 20 mg Documented By: RADHA Bupropion HCl (Bupropion Hcl Xl 300 Mg Tab.Er.24h) 300 mg PO DAILY [facility] Last Admin: 08/31/24 08:24 Dose: 300 mg Documented By: IRENE Ceftriaxone Sodium (Ceftriaxone Sodium 1 Gm Vial) 1 gm IVPUSH Q24H [facility] Last Admin: 08/31/24 08:26 Dose: 1 gm Documented By: IRENE Dextrose (Dextrose 50 % 25 Gm/50 Ml Syringe) 25 gm IVPUSH Q15M PRN; Protocol PRN Reason: per Hypoglycemia Standing Ord. Fluoxetine HCl (Fluoxetine Hcl 20 Mg Capsule) 80 mg PO DAILY [facility] Last Admin: 08/31/24 08:23 Dose: 80 mg Documented By: IRENE Glucose (Glucose Gel 15 Gm Gel..Gram.) 15 gm PO Q15M PRN; Protocol PRN Reason: per Hypoglycemia Standing Ord. Lactated Ringer's (Lr) 1,000 mls @ 80 mls/hr IVCONT .[id number] [facility] Last Admin: 08/31/24 08:25 Dose: 80 mls/hr Documented By: IRENE Insulin Glargine (Insulin Glargine,Hum.Rec.Anlog 100 Unit/Ml 10 Ml Vial) 15 unit SUBCUT DAILY [facility] Last Admin: 08/31/24 08:22 Dose: 15 unit Documented By: IRENE Labetalol HCl (Labetalol Hcl 200 Mg Tablet) 200 mg PO BID [facility]; Protocol Last Admin: 08/31/24 08:24 Dose: 200 mg Documented By: IRENE Losartan Potassium (Losartan Potassium 50 Mg Tablet) 50 mg PO DAILY [facility]; Protocol Last Admin: 08/31/24 08:24 Dose: 50 mg Documented By: IRENE Metoclopramide HCl (Metoclopramide Hcl 10 Mg/2 Ml Vial) 5 mg IVPUSH Q6H PRN PRN Reason: Nausea and Vomiting Pantoprazole Sodium (Pantoprazole Sodium 40 Mg/10 Ml Vial) 40 mg IVPUSH DAILY@0630 [facility] Last Admin: 08/31/24 05:03 Dose: 40 mg Documented By: RADHA Pregabalin (Pregabalin 75 Mg Capsule) 75 mg PO BID [facility] Last Admin: 08/31/24 08:24 Dose: 75 mg Documented By: IRENE Scopolamine (Scopolamine 1.5 Mg Patch.Td.3) 1.5 mg EAR-BEHIND Q72H [facility] Last Admin: 08/29/24 18:16 Dose: 1.5 mg Documented By: DIEGOORRDavin Sucralfate (Sucralfate Oral Suspension 1 Gm/10 Ml Oral.Susp) 1 gm PO QIDACHS [facility] Last Admin: 08/31/24 08:23 Dose: 1 gm Documented By: IRENE Tizanidine HCl (Tizanidine Hcl 4 Mg Tablet) 4 mg PO TID PRN PRN Reason: muscle spasms Zolpidem Tartrate (Zolpidem Tartrate 5 Mg Tablet) 5 mg PO BEDTIME PRN PRN Reason: Insomnia Labs 08/30/24 05:43 08/30/24 12:40 Labs: Laboratory Results - last 24 hr 08/30/24 08/30/24 08/30/24 11:20 12:40 16:26 Anion Gap 18 Estim Creat Clear Calc 80.3 Estimated GFR > 60 POC Glucose 216 H 273 H Random Glucose 256 H Calcium 9.0 08/30/24 08/30/24 08/31/24 20:27 21:15 07:34 Anion Gap Estim Creat Clear Calc Estimated GFR POC Glucose 247 H 264 H 301 H Random Glucose Calcium Microbiology Microbiology Results: Microbiology 08/29/24 10:16 Blood Culture - Preliminary Blood - Venous Gram negative blanquita 08/29/24 10:16 Blood Culture - Preliminary Blood - Venous Gram negative blanquita 08/29/24 Unknown Urine Culture - Final Urine clean catch - Clean Catch Midstream Escherichia coli Assessment and Plan (1) NSTEMI (non-ST elevated myocardial infarction): Status: Acute Plan 64F PMH DM, mood disorder, htn, presented on 08/29/2024 with nausea and weakness found to have diabetic ketoacidosis and sepsis due to urinary tract infection, was admitted to the intensive care unit treated with insulin and antibiotics, anion gap closed inpatient downgraded to medical floor on 08/30/2024. sepsis (not severe) POA due to UTI complicated by bacteremia rocephin, follow up cultures DM with DKA due to above, anion gap closed, conitnue basal bolus insulin, advance diet NSTEMI Type 2 Outpatient follow up htn Hypertensive emergency resolved, off nicardipine, continue losartan, labetalol Mood disorder Continue fluoxetine, bupropion, Lyrica DVT prophylaxis with Lovenox Full Code reason for continued hospitalization: Cultures, not eating solids yet Quality Stroke Does the patient have a stroke diagnosis?: No VTE Prior VTE?: No VTE Risk Level:: Medical - low VTE Device Contraindication: N/A - Device Ordered VTE Drug Contraindication: Treatment Not Indicated
[2024-08-31 11:26] VITALS: BP 114/55; PULSE 72; RESP 18; TEMP 36.3; O2SAT 96
[2024-08-31 11:47] LABS: Glucose, Whole Blood 296 mg/dL (60-115)
--- NOTE | 2024-08-31 14:11 | PM.PNCARD ---
Subjective Subjective Date of Service: 08/31/24 Interval history: Seen examined at bedside. She is feeling better. Out of ICU at this stage. Physical Exam Vital Signs: Last Vital Signs Temp 97.4 F 08/31/24 11:26 Pulse 72 08/31/24 11:26 Resp 18 08/31/24 11:26 BP 114/55 L 08/31/24 11:26 Pulse Ox 96 08/31/24 11:26 O2 Del Method Room Air 08/31/24 11:26 O2 Flow Rate 3 08/30/24 20:00 BMI result Body Mass Index 25.0 GENERAL APPEARANCE: in no acute distress, pleasant. NECK: no carotid bruit, no jugular venous distention. SKIN: no suspicious lesions, warm and dry. HEART: no murmurs, regular rate and rhythm. LUNGS: clear to auscultation bilaterally. ABDOMEN: soft, nontender. EXTREMITIES: no edema. PERIPHERAL PULSES: equal. NEUROLOGIC: No gross deficits, AAO X 3 Objective Labs and Meds 08/30/24 05:43 08/30/24 12:40 Lab results: Laboratory Results - last 24 hr 08/30/24 08/30/24 08/30/24 16:26 20:27 21:15 POC Glucose 273 H 247 H 264 H 08/31/24 08/31/24 07:34 11:29 POC Glucose 301 H 296 H Progress Note: A&P Assessment and plan (1) Hypertensive urgency: Status: Acute (2) NSTEMI (non-ST elevated myocardial infarction): Status: Acute (3) DKA (diabetic ketoacidosis): Status: Acute Plan Pleasant 64 year female who is presenting for diabetic ketoacidosis, hypertension and mildly elevated troponin (type 2 MN). She has been improving with hydration and sugar control. Echocardiography has shown hyperdynamic left ventricular function with LVOT gradient. I think this is just related to infection and hypovolemia. Would favor stopping hydrochlorothiazide at discharge. She was started on losartan as an alternative to olmesartan and I think that can be continued at discharge. She is on labetalol 200 mg twice a day. Overall blood pressure control is improving. I think we should not titrate medications further. Continue supportive care for DKA and urinary tract infection. No further cardiovascular work up required inpatient. Thank you for allowing me to participate in the care of your patient. Please feel free to contact me if you have any questions. Time Spent With Patient Time: Total time managing care of this patient today ____ minutes. Progress Note: Quality Stroke Does the patient have a stroke diagnosis?: No Procedures Date of Service Date of Service: 08/31/24
[2024-08-31 16:00] VITALS: BP 124/56; PULSE 72; RESP 18; TEMP 36.1; O2SAT 98
[2024-08-31 16:42] LABS: Glucose, Whole Blood 279 mg/dL (60-115)
[2024-08-31 20:00] VITALS: BP 110/53; PULSE 77; RESP 18; TEMP 37.7; O2SAT 96
[2024-08-31 20:39] LABS: Glucose, Whole Blood 299 mg/dL (60-115)
[2024-08-31 23:43] VITALS: BP 103/51; PULSE 70; RESP 18; TEMP 36.1; O2SAT 97
[2024-09-01] VITALS (8 sets, daily range): BP systolic 78–125; BP diastolic 42–60; PULSE 62–76; RESP 16–18; TEMP 36.1–37.1; O2SAT 94–98; BMI 25.4
[2024-09-01 04:44] LABS: A. Phagocytphilium DNA,RT-PCR NOT DETECTED (NOT DETECTED); Babesia Microti DNA, RT-PCR NOT DETECTED (NOT DETECTED); Borrelia Miyamotoi,DNA RT-PCR NOT DETECTED (NOT DETECTED); E.Chaffeensis DNA RT-PCR NOT DETECTED (NOT DETECTED); Lyme(Borrelia ssp)DNA RT-PCR NOT DETECTED (NOT DETECTED)
[2024-09-01 07:24] LABS: Hematocrit 28.0 % (37.0-47.0); Hemoglobin 9.8 g/dl (12.0-16.0); Mean Corpuscular HGB Conc 35.0 g/dl (31.0-35.0); Mean Corpuscular Hemoglobin 30.2 pg (27.0-33.0); Mean Corpuscular Volume 86.4 fL (80.0-98.0); NRBC Abs Auto 0.000 X10*3/uL (0.0-0.012); NRBC Pct Auto 0.0 /100WBC (0.0-0.2); Platelet Count 259 X10*3/uL (160-400); Red Blood Count 3.24 X10*6/uL (4.20-5.50); White Blood Count 8.5 X10*3/uL (4.8-10.8)
[2024-09-01 07:35] LABS: Anion Gap 13 (12-20); Blood Urea Nitrogen 38 mg/dL (9-16); Calcium 8.2 mg/dL (8.4-10.2); Carbon Dioxide 22 mmol/L (22-29); Chloride 105 mmol/L (96-108); Creatinine Clr Calc Pharmacy 45.5; Estimated Glomerular Filt Rate 46; Magnesium 1.9 mg/dL (1.6-2.6); Potassium 3.5 mmol/L (3.3-5.1); Sodium 136 mmol/L (135-145)
[2024-09-01 07:37] LABS: Glucose, Whole Blood 276 mg/dL (60-115)
[2024-09-01] MEDS: Insulin Glargine,Hum.rec.anlog 100 UNIT/ML 10 ML VIAL 15 UNIT SUBCUT (08:07)
[2024-09-01] MEDS: buPROPion HCl XL 300 MG TAB.ER.24H PO (08:08)
[2024-09-01] MEDS: Sucralfate Oral Suspension 1 GM/10 ML ORAL.SUSP PO ×4 (08:08→20:15)
--- NOTE | 2024-09-01 10:11 | P.PNIM_ITS ---
Subjective Subjective Date of Service: 09/01/24 Interval History: appetite improving, still very weak and fatigued Physical Exam 2 Vital Signs: Vital Signs: Last Vital Signs Temp 98.3 F 09/01/24 07:29 Pulse 68 09/01/24 07:29 Resp 18 09/01/24 07:29 BP 125/58 L 09/01/24 07:29 Pulse Ox 94 09/01/24 07:29 O2 Del Method Room Air 09/01/24 07:29 O2 Flow Rate 3 08/30/24 20:00 BMI result Body Mass Index 25.4 General: AO X 3, no acute distress Resp: CTA bilateral, no accessory muscles used CVS: S1,S2,RRR GI: soft, non tender, non distended Neuro: motor grossly intact, alert Psych: appropriate affect, appropriate insight Objective Data Active Medications Atorvastatin Calcium (Atorvastatin Calcium 20 Mg Tablet) 20 mg PO BEDTIME [facility] Last Admin: 08/31/24 20:19 Dose: 20 mg Documented By: KASH-JOSÉ LUISZEOsiel Bupropion HCl (Bupropion Hcl Xl 300 Mg Tab.Er.24h) 300 mg PO DAILY [facility] Last Admin: 09/01/24 08:08 Dose: 300 mg Documented By: IRENE Ceftriaxone Sodium (Ceftriaxone Sodium 1 Gm Vial) 1 gm IVPUSH Q24H [facility] Last Admin: 09/01/24 08:08 Dose: 1 gm Documented By: IRENE Dextrose (Dextrose 50 % 25 Gm/50 Ml Syringe) 25 gm IVPUSH Q15M PRN; Protocol PRN Reason: per Hypoglycemia Standing Ord. Dextrose (Dextrose 50 % 25 Gm/50 Ml Syringe) 25 gm IVPUSH Q15M PRN; Protocol PRN Reason: per Hypoglycemia Standing Ord. Enoxaparin Sodium (Enoxaparin Sodium 40 Mg/0.4 Ml Syringe) 40 mg SUBCUT Q24H [facility] Last Admin: 09/01/24 08:08 Dose: 40 mg Documented By: IRENE Fluoxetine HCl (Fluoxetine Hcl 20 Mg Capsule) 80 mg PO DAILY [facility] Last Admin: 09/01/24 08:09 Dose: 80 mg Documented By: IRENE Glucose (Glucose Gel 15 Gm Gel..Gram.) 15 gm PO Q15M PRN; Protocol PRN Reason: per Hypoglycemia Standing Ord. Glucose (Glucose Gel 15 Gm Gel..Gram.) 15 gm PO Q15M PRN; Protocol PRN Reason: per Hypoglycemia Standing Ord. Lactated Ringer's (Lr) 1,000 mls @ 80 mls/hr IVCONT .[id number] [facility] Last Admin: 09/01/24 08:31 Dose: Not Given Documented By: IRENE Non-Admin Reason: bag full Insulin Glargine (Insulin Glargine,Hum.Rec.Anlog 100 Unit/Ml 10 Ml Vial) 15 unit SUBCUT DAILY [facility] Last Admin: 09/01/24 08:07 Dose: 15 unit Documented By: IRENE Insulin Human Lispro (Insulin Lispro 100 Unit/Ml 3 Ml Vial) 0 unit SUBCUT QIDACHS [facility]; Protocol Last Admin: 09/01/24 08:07 Dose: 6 unit Documented By: IRENE Labetalol HCl (Labetalol Hcl 200 Mg Tablet) 200 mg PO BID [facility]; Protocol Last Admin: 09/01/24 08:08 Dose: 200 mg Documented By: IRENE Losartan Potassium (Losartan Potassium 50 Mg Tablet) 50 mg PO DAILY [facility]; Protocol Last Admin: 09/01/24 08:08 Dose: 50 mg Documented By: IRENE Metoclopramide HCl (Metoclopramide Hcl 10 Mg/2 Ml Vial) 5 mg IVPUSH Q6H PRN PRN Reason: Nausea and Vomiting Last Admin: 08/31/24 16:47 Dose: 5 mg Documented By: IRENE Pantoprazole Sodium (Pantoprazole Sodium 40 Mg/10 Ml Vial) 40 mg IVPUSH DAILY@0630 [facility] Last Admin: 09/01/24 06:21 Dose: 40 mg Documented By: KASH-JOZEB Pregabalin (Pregabalin 75 Mg Capsule) 75 mg PO BID [facility] Last Admin: 09/01/24 08:09 Dose: 75 mg Documented By: IRENE Scopolamine (Scopolamine 1.5 Mg Patch.Td.3) 1.5 mg EAR-BEHIND Q72H [facility] Last Admin: 08/29/24 18:16 Dose: 1.5 mg Documented By: CTORRZ Sucralfate (Sucralfate Oral Suspension 1 Gm/10 Ml Oral.Susp) 1 gm PO QIDACHS [facility] Last Admin: 09/01/24 08:08 Dose: 1 gm Documented By: IRENE Tizanidine HCl (Tizanidine Hcl 4 Mg Tablet) 4 mg PO TID PRN PRN Reason: muscle spasms Zolpidem Tartrate (Zolpidem Tartrate 5 Mg Tablet) 5 mg PO BEDTIME PRN PRN Reason: Insomnia Labs 09/01/24 06:59 09/01/24 06:59 Labs: Laboratory Results - last 24 hr 08/30/24 08/31/24 08/31/24 05:43 11:29 16:38 MCV MCH MCHC RDW Plt Count MPV Absolute Nucleated RBC Nucleated RBC % (auto) Anion Gap Estim Creat Clear Calc Estimated GFR POC Glucose 296 H 279 H Random Glucose Calcium Magnesium A.phagocytophil DNA PCR NOT DETECTED Babesia microti DNA PCR NOT DETECTED Borrelia sp DNA (PCR) NOT DETECTED Borrelia miyamotoi (PCR) NOT DETECTED E.chaffeensis DNA (PCR) NOT DETECTED Tick-borne Disease PCR SEE NOTE 08/31/24 09/01/24 09/01/24 20:09 06:59 07:33 MCV 86.4 MCH 30.2 MCHC 35.0 RDW 12.8 Plt Count 259 D MPV 10.1 Absolute Nucleated RBC 0.000 Nucleated RBC % (auto) 0.0 Anion Gap 13 Estim Creat Clear Calc 45.5 Estimated GFR 46 POC Glucose 299 H 276 H Random Glucose 292 H Calcium 8.2 L D Magnesium 1.9 A.phagocytophil DNA PCR Babesia microti DNA PCR Borrelia sp DNA (PCR) Borrelia miyamotoi (PCR) E.chaffeensis DNA (PCR) Tick-borne Disease PCR Microbiology Microbiology Results: Microbiology 08/29/24 10:16 Blood Culture - Final Blood - Venous Escherichia coli 08/29/24 10:16 Blood Culture - Final Blood - Venous Escherichia coli 08/29/24 Unknown Urine Culture - Final Urine clean catch - Clean Catch Midstream Escherichia coli Assessment and Plan (1) NSTEMI (non-ST elevated myocardial infarction): Status: Acute Plan 64F H DM, mood disorder, htn, presented on 08/29/2024 with nausea and weakness found to have diabetic ketoacidosis and sepsis due to urinary tract infection, was admitted to the intensive care unit treated with insulin and antibiotics, anion gap closed inpatient downgraded to medical floor on 08/30/2024. sepsis (not severe) POA due to UTI complicated by bacteremia - pansensitive ecoli continue rocephin day 4 DM with DKA due to above, anion gap closed, continue basal bolus insulin, now tolerating solids NSTEMI Type 2 cardiology follow up in [place] htn Hypertensive emergency resolved, off nicardipine, continue losartan, labetalol Mood disorder Continue fluoxetine, bupropion, Lyrica DVT prophylaxis with Lovenox Full Code reason for continued hospitalization: still feeling too weak Quality Stroke Does the patient have a stroke diagnosis?: No VTE Prior VTE?: No VTE Risk Level:: Medical - low VTE Device Contraindication: N/A - Device Ordered VTE Drug Contraindication: Treatment Not Indicated
--- NOTE | 2024-09-01 10:21 | PM.DS ---
DS: Providers Provider Date of Service: 09/01/24 Date of admission: 08/29/24 11:32 Date of discharge: 09/01/24 Primary care physician: Unknown Physician Consults: 08/29/24 22:33 Consult to Cardiology Routine Consulting Provider: [facility] Reason for consultation: Elevated trop/ ? ENDOCARD Has provider been notified: No DS: Diagnosis Discharge Diagnosis (1) NSTEMI (non-ST elevated myocardial infarction): Status: Acute DS: Summary Hospital Course Hospital Course: from initial hpi: 64-year-old type 2 diabetic on a trip to [place] driving home to [place] started to become weak and more lethargic yesterday and noted very foul-smelling urine but she had no cough no shortness a breath no chest discomfort she had no tick exposure she had no swimming in either the ocean or in a bello no cuts no bruises just the increased urinary frequency urgency and dysuria the [facility]: Patient was admitted to the intensive care unit for sepsis due to urinary tract infection complicated by bacteremia due to E coli and diabetic ketoacidosis. Was treated with ceftriaxone and insulin. Anion gap closed. Sepsis resolved. Was transitioned to basal bolus insulin and diet advanced. Patient had tolerating solids. On discharge we will continue basal bolus insulin and complete 7 more days of cefuroxime. Course also complicated by NSTEMI type 2. Was seen by Cardiology recommended outpatient follow up in [place], possible stress test. Course also complicated by hypertensive emergency was treated with nicardipine and blood pressure improved. Was then well controlled on losartan and labetalol. cardiology recommended continuing olmesartan on dc, but discontinue hctz. For mood disorder was continue fluoxetine, bupropion, Lyrica. Patient is feeling better will be discharged home. Time Attestation Discharge Coordination Time (in mins): 35 Quality: Safe Use of Opioids Does Pt have an Active Cancer Diagnosis on the Problem List?: No Quality: Stroke Does the patient have a stroke diagnosis?: No Physical Exam Vital Signs: Vital Signs: Last Vital Signs Temp 98.3 F 09/01/24 07:29 Pulse 68 09/01/24 07:29 Resp 18 09/01/24 07:29 BP 125/58 L 09/01/24 07:29 Pulse Ox 94 09/01/24 07:29 O2 Del Method Room Air 09/01/24 07:29 O2 Flow Rate 3 08/30/24 20:00 BMI result Body Mass Index 25.4 General: AO X 3, no acute distress Resp: CTA bilateral, no accessory muscles used CVS: S1,S2,RRR GI: soft, non tender, non distended Neuro: motor grossly intact, alert Psych: appropriate affect, appropriate insight DS: Data Data Completed and Pending Labs on day of discharge: Laboratory Results - last 24 hr 08/30/24 08/31/24 08/31/24 05:43 11:29 16:38 WBC RBC Hgb Hct MCV MCH MCHC RDW Plt Count MPV Absolute Nucleated RBC Nucleated RBC % (auto) Sodium Potassium Chloride Carbon Dioxide Anion Gap BUN Creatinine Estim Creat Clear Calc Estimated GFR POC Glucose 296 H 279 H Random Glucose Calcium Magnesium A.phagocytophil DNA PCR NOT DETECTED Babesia microti DNA PCR NOT DETECTED Borrelia sp DNA (PCR) NOT DETECTED Borrelia miyamotoi (PCR) NOT DETECTED E.chaffeensis DNA (PCR) NOT DETECTED Tick-borne Disease PCR SEE NOTE 08/31/24 09/01/24 09/01/24 20:09 06:59 07:33 WBC 8.5 RBC 3.24 L Hgb 9.8 L Hct 28.0 L MCV 86.4 MCH 30.2 MCHC 35.0 RDW 12.8 Plt Count 259 D MPV 10.1 Absolute Nucleated RBC 0.000 Nucleated RBC % (auto) 0.0 Sodium 136 Potassium 3.5 Chloride 105 Carbon Dioxide 22 Anion Gap 13 BUN 38 H Creatinine 1.19 Estim Creat Clear Calc 45.5 Estimated GFR 46 POC Glucose 299 H 276 H Random Glucose 292 H Calcium 8.2 L D Magnesium 1.9 A.phagocytophil DNA PCR Babesia microti DNA PCR Borrelia sp DNA (PCR) Borrelia miyamotoi (PCR) E.chaffeensis DNA (PCR) Tick-borne Disease PCR Discharge Plan Discharge Anticipated Discharge Date/Time: 09/02/24 10:15 Patient Disposition: Home, Self-Care Discharge Diagnosis: sepsis, uti, dka, nstemi II Referrals: Physician,Unknown J [Primary Care Provider, Medical] - 1 Week Discharge Medications: New (DME) FreeStyle Lite Strips Strip Qty: 100 0RF Rx Instructions: Test four times a day or as directed. (DME) blood-glucose meter [FreeStyle Lite Meter] Kit Qty: 1 0RF Rx Instructions: As Directed (DME) pen needle, diabetic 32 gauge x 1/4 needle Qty: 100 0RF Rx Instructions: Use four times a day or as directed. (DME) lancets [FreeStyle Lancets] 28 gauge misc Qty: 100 0RF Rx Instructions: Test four times a day or as directed. insulin glargine [Lantus U-100 Insulin] 100 unit/mL Solution 15 unit subcut DAILY 90 Days Qty: 13.5 0RF alcohol swabs Pads, Medicated 1 pad TOPICAL QIDACHS Qty: 100 0RF Rx Instructions: Use four times a day or as directed. cefuroxime axetil 500 mg tablet 500 mg PO Q12H Qty: 14 0RF olmesartan 40 mg tablet 40 mg PO DAILY Qty: 90 0RF insulin lispro [Admelog U-100 Insulin lispro] 100 unit/mL Solution See Protocol subcut QIDACHS Qty: 10 0RF Protocol: Insulin Correction Scale Less than or equal to 110 ---- Give (units): 0 111 to 150 Give (units): 0 151 to 200 Give (units): 2 201 to 250 Give (units): 4 251 to 300 Give (units): 6 301 to 350 Give (units): 8 Greater than 350 Give (units): 10 Call MD if Blood Glucose > : 350 Rx Instructions: BG <111 0 units, 111-150 - 0 units, 151-200 2 units, 201-250 4 units, 251-300 6 units, 301-350 8 units, >350 10 units Continued celecoxib 200 mg capsule 200 mg PO BID fluoxetine 40 mg capsule 80 mg PO DAILY tizanidine 4 mg tablet 4 mg PO TID PRN (Reason: muscle spasms) simvastatin 40 mg tablet 40 mg PO BEDTIME zolpidem 5 mg tablet 5 mg PO BEDTIME PRN (Reason: Insomnia) ondansetron 4 mg tablet,disintegrating 4 mg PO DAILY PRN (Reason: nausea/vomiting) ezetimibe 10 mg tablet 10 mg PO DAILY bupropion HCl 150 mg tablet extended release 24 hr 150 mg PO DAILY pregabalin 75 mg capsule 75 mg PO BID guanfacine 3 mg tablet extended release 24 hr 3 mg PO BEDTIME Ozempic 1 mg/dose (4 mg/3 mL) pen injector 1 mg SUBCUT HERNÁNDEZ@0900 bupropion HCl 300 mg tablet extended release 24 hr 300 mg PO DAILY Discontinued olmesartan-hydrochlorothiazide 40-12.5 mg tablet 1 tab PO DAILY Diet: Diabetic diet Activity on Discharge: As tolerated Stand Alone Forms: Patient Portal Discharge page Print Language: Urdu Care Plan Goals: work up heart disease control DM complete uti treatment Health Concerns: DM, possible CAD UTI Plan of Treatment: 7 more days ceftin starting in[place]lin - monitor sugars follow up with circulation worker stopped hctz Assessment: see above
[2024-09-01 11:34] LABS: Glucose, Whole Blood 331 mg/dL (60-115)
[2024-09-01 13:11] LABS: Glucose, Whole Blood 288 mg/dL (60-115)
[2024-09-01] MEDS: Albumin Human 25 % 100 ML IV ×2 (14:30→18:08)
[2024-09-01 15:56] LABS: Glucose, Whole Blood 272 mg/dL (60-115)
--- NOTE | 2024-09-01 16:06 | MHC.CM.PN ---
PT MEDICALLY CLEARED FOR DC HOME SELF-CARE, PT'S FOR TRANSPORT
[2024-09-01] MEDS: Lactated Ringers 1,000 ML 80 ML IVCONT (16:39)
[2024-09-01 21:31] LABS: Glucose, Whole Blood 297 mg/dL (60-115)
[2024-09-02 04:00] VITALS: BP 129/61; PULSE 67; RESP 16; TEMP 36.5; O2SAT 96
[2024-09-02] MEDS: Lactated Ringers 1,000 ML 80 ML IVCONT (05:42)
[2024-09-02 07:00] LABS: Hematocrit 26.3 % (37.0-47.0); Hemoglobin 8.9 g/dl (12.0-16.0); Mean Corpuscular HGB Conc 33.8 g/dl (31.0-35.0); Mean Corpuscular Hemoglobin 30.0 pg (27.0-33.0); Mean Corpuscular Volume 88.6 fL (80.0-98.0); NRBC Abs Auto 0.000 X10*3/uL (0.0-0.012); NRBC Pct Auto 0.0 /100WBC (0.0-0.2); Platelet Count 209 X10*3/uL (160-400); Red Blood Count 2.97 X10*6/uL (4.20-5.50); White Blood Count 6.4 X10*3/uL (4.8-10.8)
[2024-09-02 07:07] LABS: Anion Gap 10 (12-20); Blood Urea Nitrogen 31 mg/dL (9-16); Calcium 8.0 mg/dL (8.4-10.2); Carbon Dioxide 24 mmol/L (22-29); Chloride 108 mmol/L (96-108); Creatinine Clr Calc Pharmacy 53.1; Estimated Glomerular Filt Rate 55; Potassium 3.6 mmol/L (3.3-5.1); Sodium 138 mmol/L (135-145)
[2024-09-02 07:47] LABS: Glucose, Whole Blood 256 mg/dL (60-115)
[2024-09-02 08:00] VITALS: BP 130/58; PULSE 72; RESP 20; TEMP 36.8; O2SAT 96
--- NOTE | 2024-09-02 08:04 | HO.PM.IMPN ---
Subjective Subjective Date of Service: 09/02/24 Physical Exam Vital Signs: Vital Signs: Last Vital Signs Temp 97.7 F 09/02/24 04:00 Pulse 67 09/02/24 04:00 Resp 16 09/02/24 04:00 BP 129/61 09/02/24 04:00 Pulse Ox 96 09/02/24 04:00 O2 Del Method Room Air 09/02/24 04:00 O2 Flow Rate 3 08/30/24 20:00 BMI result Body Mass Index 25.4 Objective Data Active Medications Atorvastatin Calcium (Atorvastatin Calcium 20 Mg Tablet) 20 mg PO BEDTIME [facility] Last Admin: 09/01/24 20:15 Dose: 20 mg Documented By: KASH-DESSK Bupropion HCl (Bupropion Hcl Xl 300 Mg Tab.Er.24h) 300 mg PO DAILY [facility] Last Admin: 09/01/24 08:08 Dose: 300 mg Documented By: IRENE Ceftriaxone Sodium (Ceftriaxone Sodium 1 Gm Vial) 1 gm IVPUSH Q24H [facility] Last Admin: 09/01/24 08:08 Dose: 1 gm Documented By: IRENE Dextrose (Dextrose 50 % 25 Gm/50 Ml Syringe) 25 gm IVPUSH Q15M PRN; Protocol PRN Reason: per Hypoglycemia Standing Ord. Dextrose (Dextrose 50 % 25 Gm/50 Ml Syringe) 25 gm IVPUSH Q15M PRN; Protocol PRN Reason: per Hypoglycemia Standing Ord. Enoxaparin Sodium (Enoxaparin Sodium 40 Mg/0.4 Ml Syringe) 40 mg SUBCUT Q24H [facility] Last Admin: 09/01/24 08:08 Dose: 40 mg Documented By: IRENE Fluoxetine HCl (Fluoxetine Hcl 20 Mg Capsule) 80 mg PO DAILY [facility] Last Admin: 09/01/24 08:09 Dose: 80 mg Documented By: IRENE Glucose (Glucose Gel 15 Gm Gel..Gram.) 15 gm PO Q15M PRN; Protocol PRN Reason: per Hypoglycemia Standing Ord. Glucose (Glucose Gel 15 Gm Gel..Gram.) 15 gm PO Q15M PRN; Protocol PRN Reason: per Hypoglycemia Standing Ord. Lactated Ringer's (Lr) 1,000 mls @ 80 mls/hr IVCONT .[id number] [facility] Last Admin: 09/02/24 05:42 Dose: 80 mls/hr Documented By: CRISTOBAL Insulin Glargine (Insulin Glargine,Hum.Rec.Anlog 100 Unit/Ml 10 Ml Vial) 15 unit SUBCUT DAILY [facility] Last Admin: 09/01/24 08:07 Dose: 15 unit Documented By: IRENE Insulin Human Lispro (Insulin Lispro 100 Unit/Ml 3 Ml Vial) 0 unit SUBCUT QIDAS [facility]; Protocol Last Admin: 09/01/24 21:46 Dose: 6 unit Documented By: CRISTOBAL Losartan Potassium (Losartan Potassium 50 Mg Tablet) 50 mg PO DAILY [facility]; Protocol Last Admin: 09/01/24 08:08 Dose: 50 mg Documented By: IRENE Metoclopramide HCl (Metoclopramide Hcl 10 Mg/2 Ml Vial) 5 mg IVPUSH Q6H PRN PRN Reason: Nausea and Vomiting Last Admin: 08/31/24 16:47 Dose: 5 mg Documented By: IRENE Pantoprazole Sodium (Pantoprazole Sodium 40 Mg/10 Ml Vial) 40 mg IVPUSH DAILY@0630 [facility] Last Admin: 09/02/24 05:42 Dose: 40 mg Documented By: CRISTOBAL Pregabalin (Pregabalin 75 Mg Capsule) 75 mg PO BID [facility] Last Admin: 09/01/24 20:15 Dose: 75 mg Documented By: CRISTOBAL Scopolamine (Scopolamine 1.5 Mg Patch.Td.3) 1.5 mg EAR-BEHIND Q72H [facility] Last Admin: 09/01/24 18:11 Dose: 1.5 mg Documented By: IRENE Sucralfate (Sucralfate Oral Suspension 1 Gm/10 Ml Oral.Susp) 1 gm PO QIDACHS [facility] Last Admin: 09/01/24 20:15 Dose: 1 gm Documented By: CRISTOBAL Tizanidine HCl (Tizanidine Hcl 4 Mg Tablet) 4 mg PO TID PRN PRN Reason: muscle spasms Zolpidem Tartrate (Zolpidem Tartrate 5 Mg Tablet) 5 mg PO BEDTIME PRN PRN Reason: Insomnia Labs 09/02/24 06:40 09/02/24 06:40 Labs: Laboratory Results - last 24 hr 09/01/24 09/01/24 09/01/24 11:11 13:06 15:32 MCV MCH MCHC RDW Plt Count MPV Absolute Nucleated RBC Nucleated RBC % (auto) Anion Gap Estim Creat Clear Calc Estimated GFR POC Glucose 331 H 288 H 272 H Random Glucose Calcium 09/01/24 09/02/24 09/02/24 20:51 06:40 07:42 MCV 88.6 MCH 30.0 MCHC 33.8 RDW 12.4 Plt Count 209 MPV 10.1 Absolute Nucleated RBC 0.000 Nucleated RBC % (auto) 0.0 Anion Gap 10 L Estim Creat Clear Calc 53.1 Estimated GFR 55 POC Glucose 297 H 256 H Random Glucose 285 H Calcium 8.0 L Microbiology Microbiology Results: Microbiology 08/29/24 10:16 Blood Culture - Final Blood - Venous Escherichia coli 08/29/24 10:16 Blood Culture - Final Blood - Venous Escherichia coli Quality Stroke Does the patient have a stroke diagnosis?: No VTE Prior VTE?: No VTE Risk Level:: Medical - low VTE Device Contraindication: N/A - Device Ordered VTE Drug Contraindication: Treatment Not Indicated
[2024-09-02 08:23] VITALS: BP 130/58
[2024-09-02] MEDS: Sucralfate Oral Suspension 1 GM/10 ML ORAL.SUSP PO ×2 (08:23→12:26)
[2024-09-02] MEDS: buPROPion HCl XL 300 MG TAB.ER.24H PO (08:23)
[2024-09-02] MEDS: Insulin Glargine,Hum.rec.anlog 100 UNIT/ML 10 ML VIAL 15 UNIT SUBCUT (08:23)
[2024-09-02 12:00] VITALS: BP 135/63; PULSE 75; RESP 20; TEMP 36.7; O2SAT 94
[2024-09-02 12:06] LABS: Glucose, Whole Blood 236 mg/dL (60-115)
[2024-09-02 13:26] LABS: Hematocrit 26.4 % (37.0-47.0); Hemoglobin 9.4 g/dl (12.0-16.0)
--- NOTE | 2024-09-02 13:53 | MHC.CM.PN ---
[facility] PT WILL DC BACK TO [facility] W/ FOR TRANSPORT.
--- NOTE | 2024-09-02 14:06 | PM.DS ---
DS: Providers Provider Date of Service: 09/02/24 Date of admission: 08/29/24 11:32 Date of discharge: 09/02/24 Primary care physician: Unknown Physician Attending physician on admission: Vega Church Consults: 08/29/24 22:33 Consult to Cardiology Routine Consulting Provider: [facility] Reason for consultation: Elevated trop/ ? [facility]ARD Has provider been notified: No Attending physician on discharge: Artur Collazo Discharging clinician: Cassia Falcon DS: Diagnosis Discharge Diagnosis (1) NSTEMI (non-ST elevated myocardial infarction): Status: Acute DS: Summary Hospital Course Hospital Course: from initial hpi: 64-year-old type 2 diabetic on a trip to [place] driving home to [place] started to become weak and more lethargic yesterday and noted very foul-smelling urine but she had no cough no shortness a breath no chest discomfort she had no tick exposure she had no swimming in either the ocean or in a bello no cuts no bruises just the increased urinary frequency urgency and dysuria the only medicine she remembers is the [facility] course: Patient was admitted to the intensive care unit for sepsis due to urinary tract infection complicated by bacteremia due to E coli and diabetic ketoacidosis. Was treated with ceftriaxone and insulin. Anion gap closed. Sepsis resolved. Was transitioned to basal bolus insulin and diet advanced. Patient had tolerating solids. On discharge we will continue basal bolus insulin and complete 7 more days of cefuroxime. Course also complicated by NSTEMI type 2. Was seen by Cardiology recommended outpatient follow up in [place], possible stress test. Course also complicated by hypertensive emergency was treated with nicardipine and blood pressure improved. Was then well controlled on losartan and labetalol. cardiology recommended continuing olmesartan on dc, but discontinue hctz. For mood disorder was continue fluoxetine, bupropion, Lyrica. Patient is feeling better will be discharged home. Status at Discharge Functional status at discharge: independent ambulation Overall status at discharge: patient is progressing back to baseline Time Attestation Total time managing care of this patient today: 40 mintues. Discharge Coordination Time (in mins): 40 Quality: Safe Use of Opioids Does Pt have an Active Cancer Diagnosis on the Problem List?: No Quality: Stroke Does the patient have a stroke diagnosis?: No Physical Exam Vital Signs: Vital Signs: Last Vital Signs Temp 98.1 F 09/02/24 12:00 Pulse 75 09/02/24 12:00 Resp 20 09/02/24 12:00 BP 135/63 09/02/24 12:00 Pulse Ox 94 09/02/24 12:00 O2 Del Method Room Air 09/02/24 12:00 O2 Flow Rate 3 08/30/24 20:00 BMI result Body Mass Index 25.4 DS: Data Data Completed and Pending Labs on day of discharge: Laboratory Results - last 24 hr 09/01/24 09/01/24 09/02/24 15:32 20:51 06:40 WBC 6.4 RBC 2.97 L Hgb 8.9 L Hct 26.3 L MCV 88.6 MCH 30.0 MCHC 33.8 RDW 12.4 Plt Count 209 MPV 10.1 Absolute Nucleated RBC 0.000 Nucleated RBC % (auto) 0.0 Sodium 138 Potassium 3.6 Chloride 108 Carbon Dioxide 24 Anion Gap 10 L BUN 31 H Creatinine 1.02 Estim Creat Clear Calc 53.1 Estimated GFR 55 POC Glucose 272 H 297 H Random Glucose 285 H Calcium 8.0 L 09/02/24 09/02/24 09/02/24 07:42 11:58 13:15 WBC RBC Hgb 9.4 L Hct 26.4 L MCV MCH MCHC RDW Plt Count MPV Absolute Nucleated RBC Nucleated RBC % (auto) Sodium Potassium Chloride Carbon Dioxide Anion Gap BUN Creatinine Estim Creat Clear Calc Estimated GFR POC Glucose 256 H 236 H Random Glucose Calcium Discharge Plan Discharge Anticipated Discharge Date/Time: 09/02/24 10:15 Patient Disposition: Home, Self-Care Discharge Diagnosis: sepsis, uti, dka, nstemi II Referrals: Physician,Unknown J [Primary Care Provider, Medical] - 1 Week Discharge Medications: New (DME) FreeStyle Lite Strips Strip Qty: 100 0RF Rx Instructions: Test four times a day or as directed. (DME) blood-glucose meter [FreeStyle Lite Meter] Kit Qty: 1 0RF Rx Instructions: As Directed alcohol swabs Pads, Medicated 1 pad TOPICAL QIDACHS Qty: 100 0RF Rx Instructions: Use four times a day or as directed. (DME) pen needle, diabetic 32 gauge x 1/4 needle Qty: 100 0RF Rx Instructions: Use four times a day or as directed. (DME) lancets [FreeStyle Lancets] 28 gauge misc Qty: 100 0RF Rx Instructions: Test four times a day or as directed. cefuroxime axetil 500 mg tablet 500 mg PO Q12H Qty: 14 0RF olmesartan 40 mg tablet 40 mg PO DAILY Qty: 90 0RF insulin glargine [Lantus Solostar U-100 Insulin] 100 unit/mL (3 mL) insulin pen 15 unit subcut QAM Qty: 45 0RF insulin aspart U-100 [Novolog FlexPen U-100 Insulin] 100 unit/mL (3 mL) insulin pen 1 sliding scale dose subcut USEASDIRECTD Qty: 45 0RF Continued celecoxib 200 mg capsule 200 mg PO BID fluoxetine 40 mg capsule 80 mg PO DAILY tizanidine 4 mg tablet 4 mg PO TID PRN (Reason: muscle spasms) simvastatin 40 mg tablet 40 mg PO BEDTIME zolpidem 5 mg tablet 5 mg PO BEDTIME PRN (Reason: Insomnia) ondansetron 4 mg tablet,disintegrating 4 mg PO DAILY PRN (Reason: nausea/vomiting) ezetimibe 10 mg tablet 10 mg PO DAILY bupropion HCl 150 mg tablet extended release 24 hr 150 mg PO DAILY pregabalin 75 mg capsule 75 mg PO BID guanfacine 3 mg tablet extended release 24 hr 3 mg PO BEDTIME Ozempic 1 mg/dose (4 mg/3 mL) pen injector 1 mg SUBCUT HERNÁNDEZ@0900 bupropion HCl 300 mg tablet extended release 24 hr 300 mg PO DAILY Discontinued olmesartan-hydrochlorothiazide 40-12.5 mg tablet 1 tab PO DAILY Discharge Orders: Discharge Order (Routine); Ordered 09/02/24 Ordered By: Cassia Falcon Diet: Diabetic diet Activity on Discharge: As tolerated Stand Alone Forms: Patient Portal Discharge page Print Language: Wallisian Care Plan Goals: work up heart disease control DM complete uti treatment Health Concerns: DM, possible CAD UTI Plan of Treatment: 7 more days ceftin starting in[place] - monitor sugars follow up with retail field merchandiser to further evaluate for any evidence of heart disease stopped hctz Assessment: see above
[2024-09-02 14:29] LABS: Hemoglobin A1C 278.6774 umol/L; Total Hemoglobin (HGBA1C) 2486.2437 umol/L
== END 2024-09-02 16:00 | disposition home or self-care (01) | DRG 871 ==
LOC: HO.ED 11:38 → HO.EDOVER 11:40 → HO.ICU 11:44 → HO.IMC 08-30 18:13
PROVIDERS: Internal Medicine; Internal Medicine Critical Care Medicine; Registered Nurse Community Health; Admitting Provider Internal Medicine Cardiovascular Disease; Emergency Provider Emergency Medicine; Visit Provider Physician Assistant
DX: A41.9 Sepsis, unspecified organism (principal); E11.10 Type 2 diabetes mellitus with ketoacidosis without coma; I21.A1 Myocardial infarction type 2; N39.0 Urinary tract infection, site not specified; I16.1 Hypertensive emergency; I95.2 Hypotension due to drugs; I10 Essential (primary) hypertension; B96.20 Unspecified Escherichia coli [E. coli] as the cause of diseases classified elsewhere; Z79.4 Long term (current) use of insulin; Z79.899 Other long term (current) drug therapy
CPT/HCPCS: 36415; 74176; 80048; 80053; 80076; 81001; 82010; 82803; 82947; 83036; 83605; 83690; 83735; 83880; 84100; 84145; 84484; 85014; 85018; 85025; 85027; 85610; 85730; 86753; 87040; 87077; 87086; 87088; 87186; 87205; 87468; 87469; 87478; 87484; 87798; 93005; 93306; 99285; J0360; J0696; J0737; J1271; J1308; J1644; J1650; J1790; J1920; J2404; J2405; J2470; J2550; J2765; J3480; J7120; P9047; Q9957

== ENCOUNTER → 2024-08-29 07:53 | Outpatient (BNV) | payer SELFPAY | PROVIDERS: Emergency Provider Emergency Medicine; Visit Provider Internal Medicine Cardiovascular Disease | DX: I45.10 Unspecified right bundle-branch block (principal); I49.9 Cardiac arrhythmia, unspecified | CPT/HCPCS: 93010 ==

== ENCOUNTER → 2024-08-29 07:57 | Outpatient (BNV) | payer SELFPAY | PROVIDERS: Emergency Provider Emergency Medicine; Visit Provider Internal Medicine Cardiovascular Disease | DX: E11.10 Type 2 diabetes mellitus with ketoacidosis without coma (principal); N39.0 Urinary tract infection, site not specified | CPT/HCPCS: 99233 ==

== ENCOUNTER → 2024-08-29 09:07 | Outpatient (BNV) | payer SELFPAY | PROVIDERS: Emergency Provider Emergency Medicine; Visit Provider Radiology Diagnostic Radiology | DX: K52.9 Noninfective gastroenteritis and colitis, unspecified (principal); K56.41 Fecal impaction | CPT/HCPCS: 74176 ==

== ENCOUNTER 2024-08-29 11:32 | Outpatient (BNV) | payer MEDICARE, SELFPAY | END 2024-08-30 07:00 | PROVIDERS: Admitting Provider Internal Medicine Cardiovascular Disease; Emergency Provider Emergency Medicine; Visit Provider Internal Medicine Cardiovascular Disease | DX: I42.2 Other hypertrophic cardiomyopathy (principal); I51.7 Cardiomegaly; R00.0 Tachycardia, unspecified; I45.10 Unspecified right bundle-branch block | CPT/HCPCS: 93010; 93306 ==

== ENCOUNTER → 2024-08-29 11:32 | Outpatient (BNV) | payer MEDICARE, SELFPAY | PROVIDERS: Admitting Provider Internal Medicine Cardiovascular Disease; Emergency Provider Emergency Medicine; Visit Provider Internal Medicine | DX: I21.4 Non-ST elevation (NSTEMI) myocardial infarction (principal) | CPT/HCPCS: 99232; 99239 ==

== ENCOUNTER → 2024-08-29 11:32 | Outpatient (BNV) | payer MEDICARE, SELFPAY | PROVIDERS: Admitting Provider Internal Medicine Cardiovascular Disease; Emergency Provider Emergency Medicine; Visit Provider Internal Medicine Cardiovascular Disease | DX: I16.0 Hypertensive urgency (principal); I21.4 Non-ST elevation (NSTEMI) myocardial infarction; E11.10 Type 2 diabetes mellitus with ketoacidosis without coma | CPT/HCPCS: 99223; 99233 ==